=== PATIENT | female | born 1950 | race Caucasian/White ===

== ENCOUNTER → 2018-01-16 07:23 | Outpatient (CLI) | payer MEDICARE, OTHER, SELFPAY ==
[2018-01-16 08:44] LABS: ALB/GLOB Ratio 0.9 RATIO (0.9-2.4); AST(SGOT) 10 U/L (15-37); Alanine Aminotransfer ALT/SGPT 20 U/L (13-56); Albumin, Serum 3.3 g/dL (3.2-5.0); Alkaline Phosphatase 90 U/L (45-117); Anion Gap 5 (5-15); BUN 14 mg/dL (7-18); BUN/Creat Ratio 20.6 RATIO (10-20); Calcium,Total 8.2 mg/dL (8.5-10.1); Chloride 110 mmol/L (98-107); Creatinine, Serum 0.68 mg/dL (0.55-1.02); EST Glomerular Filtration Rate 91 mL/min (>60); Est Glom Filt Rate - Afr Amer 111 mL/min (>60); Globulin 3.5 g/dL (2.2-4.2); Glucose 94 mg/dL (74-106); Potassium 3.7 mmol/L (3.5-5.1); Protein, Total 6.8 g/dL (6.4-8.2); Sodium Level 142 mmol/L (136-145); Thyroid Stim Hormone (TSH) 1.72 uIU/mL (0.358-3.74)
[2018-01-16 09:50] LABS: Vitamin D,25 Hydroxy 55.2 ng/mL (29.95-100.01)
== END ==
PROVIDERS: Family Provider Family Medicine; PCP Family Medicine; Visit Provider Internal Medicine Endocrinology, Diabetes & Metabolism
DX: E03.8 Other specified hypothyroidism (principal); E55.9 Vitamin D deficiency, unspecified
CPT/HCPCS: 36415; 80053; 82306; 84443

== ENCOUNTER → 2018-06-10 15:50 | Outpatient (CLI) | payer MEDICARE, OTHER, SELFPAY | PROVIDERS: Family Provider Family Medicine; PCP Family Medicine; Visit Provider Otolaryngology Otolaryngology/Facial Plastic Surgery | DX: J34.89 Other specified disorders of nose and nasal sinuses (principal) | CPT/HCPCS: 87070; 87077; 87186; 87205 ==

== ENCOUNTER → 2018-09-11 07:54 | Outpatient (CLI) | payer MEDICARE, OTHER, SELFPAY ==
[2018-09-11 09:28] LABS: ALB/GLOB Ratio 0.9 RATIO (0.9-2.4); AST(SGOT) 13 U/L (15-37); Alanine Aminotransfer ALT/SGPT 26 U/L (13-56); Albumin, Serum 3.4 g/dL (3.2-5.0); Alkaline Phosphatase 86 U/L (45-117); Anion Gap 8 (5-15); BUN 11 mg/dL (7-18); BUN/Creat Ratio 15.2 RATIO (10-20); Calcium,Total 8.7 mg/dL (8.5-10.1); Chloride 108 mmol/L (98-107); Cholesterol 177 mg/dL (200); Creatinine, Serum 0.72 mg/dL (0.55-1.02); EST Glomerular Filtration Rate 85 mL/min (>60); Est Glom Filt Rate - Afr Amer 103 mL/min (>60); Globulin 3.7 g/dL (2.2-4.2); Glucose 98 mg/dL (74-106); High Density Lipoprotein 45 mg/dL; Protein, Total 7.1 g/dL (6.4-8.2); Sodium Level 142 mmol/L (136-145); Triglycerides 153 mg/dL; Very Low Density Lipoprotein 31 mg/dL (5-40)
[2018-09-11 09:31] LABS: Vitamin D,25 Hydroxy 43.7 ng/mL (29.95-100.01)
== END ==
PROVIDERS: Family Provider Family Medicine; PCP Family Medicine; Referring Provider Internal Medicine Endocrinology, Diabetes & Metabolism; Visit Provider Internal Medicine Endocrinology, Diabetes & Metabolism
DX: E03.8 Other specified hypothyroidism (principal); E78.2 Mixed hyperlipidemia; E55.9 Vitamin D deficiency, unspecified
CPT/HCPCS: 36415; 80053; 80061; 82306

== ENCOUNTER → 2018-11-19 08:37 | Outpatient (CLI) | payer MEDICARE, OTHER, SELFPAY ==
[2018-10-30 08:20] VITALS: BMI 31.4
--- NOTE | 2018-11-19 08:39 | ECHOCS_ITS ---
Reason For Study: HTN Procedure This was a 2D Doppler, Color Flow transthoracic echocardiogram. Contrast injection was performed. Exam performed in department. Left Ventricle Normal LV size. Left ventricular systolic function is normal. The estimated ejection fraction is 65 %. No regional wall motion abnormalities noted. Right Ventricle Normal RV size. Normal systolic function. Atria Normal left atrium. Normal right atrium. Mitral Valve Normal mitral valve. Tricuspid Valve Normal tricuspid valve. Aortic Valve Normal aortic valve. Trisinus/trileaflet aortic valve. Pulmonic Valve Normal pulmonic valve. Great Vessels Normal aortic root. The pulmonary artery is normal size. Normal inferior vena cava. Pericardium/Pleural No pericardial effusion. Medication 22 gauge I.V. with prn adaptor inserted into left arm. Diluted definity 4ml given slow IV push to enhance endocardial definition. MMode/2D Measurements & Calculations LVIDd: 4.6 cm IVSd: 0.71 cm Ao root diam: 3.3 cm LVIDs: 3.5 cm LVPWd: 1.0 cm RVDd: 3.1 cm FS: 24.3 % LAV(MOD-bp): 39.3 ml LVAd ap4: 32.7 cm2 EDV(MOD-sp2): 80.7 ml LAV(MOD-bp) Indexed: 20.1 ml/m2 EDV(MOD-sp4): 110.8 ml EF(MOD-sp2): 63.2 % LAV(MOD-sp2): 37.4 ml EDV(sp4-el): 109.1 ml LAV(MOD-sp4): 42.2 ml LVAs ap4: 18.5 cm2 ESV(MOD-sp4): 52.5 ml ESV(sp4-el): 48.7 ml EF(MOD-sp4): 52.6 % EF(sp4-el): 55.4 % SV(MOD-sp4): 58.3 ml SV(MOD-sp2): 51.0 ml SV(sp4-el): 60.4 ml LA A4 area: 16.0 cm2 LA dimension(2D): 4.0 cm RA A4 area: 11.7 cm2 Time Measurements MV dec time: 0.11 sec Doppler Measurements & Calculations MV E max ricardo: 70.7 cm/sec Lat Peak E' Ricardo: 3.5 cm/sec Med Peak E' Ricardo: 4.3 cm/sec MV A max ricardo: 110.1 cm/sec E/E' lat: 19.9 E/E' med: 16.4 MV E/A: 0.64 Ao V2 max: 121.9 cm/sec LV V1 max: 90.9 cm/sec PA V2 max: 86.5 cm/sec Ao max P.9 mmHg LV V1 max P.3 mmHg TR max ricardo: 234.9 cm/sec TR max P.1 mmHg Interpretation Summary Normal LV size. Left ventricular systolic function is normal. The estimated ejection fraction is 65 %. Contrast injection was performed. Structurally normal valves. Ordering Physician: Da Solorio Referring Physician: JANET REYES Performed By: Liv Abel, SANGEETA, RVT
== END ==
PROVIDERS: Family Provider Family Medicine; PCP Family Medicine; Referring Provider Internal Medicine Cardiovascular Disease; Visit Provider Internal Medicine Cardiovascular Disease
DX: I10 Essential (primary) hypertension (principal)
CPT/HCPCS: 93306; Q9957; A4216; C8929

== ENCOUNTER → 2019-03-09 08:18 | Outpatient (CLI) | payer MEDICARE, OTHER, SELFPAY ==
[2018-10-30 08:20] VITALS: BMI 31.4
[2019-03-09 11:41] LABS: T4 Free Direct 1.16 ng/dL (0.76-1.46); Thyroid Stim Hormone (TSH) 0.96 uIU/mL (0.358-3.74)
== END ==
PROVIDERS: Family Provider Family Medicine; PCP Family Medicine; Referring Provider Family Medicine; Visit Provider Family Medicine
DX: E03.9 Hypothyroidism, unspecified (principal)
CPT/HCPCS: 36415; 84439; 84443

== ENCOUNTER → 2019-05-18 07:32 | Outpatient (CLI) | payer MEDICARE, OTHER, SELFPAY ==
[2018-10-30 08:20] VITALS: BMI 31.4
[2019-05-18 09:41] LABS: Vitamin D,25 Hydroxy 30.1 ng/mL (29.95-100.01)
[2019-05-18 09:44] LABS: AST(SGOT) 18 U/L (15-37); Alanine Aminotransfer ALT/SGPT 31 U/L (13-56); Albumin, Serum 3.5 g/dL (3.2-5.0); Alkaline Phosphatase 93 U/L (45-117); Anion Gap 7 (5-15); BUN 16 mg/dL (7-18); BUN/Creat Ratio 23.3 RATIO (10-20); Calcium,Total 8.9 mg/dL (8.5-10.1); Chloride 107 mmol/L (98-107); Cholesterol 177 mg/dL (200); Creatinine, Serum 0.69 mg/dL (0.55-1.02); EST Glomerular Filtration Rate 90 mL/min (>60); Est Glom Filt Rate - Afr Amer 109 mL/min (>60); Globulin 3.5 g/dL (2.2-4.2); Glucose 101 mg/dL (74-106); High Density Lipoprotein 49 mg/dL; Potassium 3.9 mmol/L (3.5-5.1); Sodium Level 141 mmol/L (136-145); Thyroid Stim Hormone (TSH) 1.02 uIU/mL (0.358-3.74); Triglycerides 121 mg/dL; Very Low Density Lipoprotein 24 mg/dL (5-40)
== END ==
PROVIDERS: Family Provider Family Medicine; PCP Family Medicine; Referring Provider Internal Medicine Endocrinology, Diabetes & Metabolism; Visit Provider Internal Medicine Endocrinology, Diabetes & Metabolism
DX: E03.8 Other specified hypothyroidism (principal); E78.2 Mixed hyperlipidemia; E55.9 Vitamin D deficiency, unspecified
CPT/HCPCS: 36415; 80053; 80061; 82306; 84443

== ENCOUNTER → 2020-01-14 09:37 | Outpatient (CLI) | payer MEDICARE, OTHER, SELFPAY ==
[2019-10-26 11:07] VITALS: BMI 31.4
[2020-01-14 12:28] LABS: AST(SGOT) 21 U/L (15-37); Alanine Aminotransfer ALT/SGPT 28 U/L (13-56); Albumin, Serum 3.6 g/dL (3.2-5.0); Alkaline Phosphatase 93 U/L (45-117); Anion Gap 5 (5-15); BUN 17 mg/dL (7-18); BUN/Creat Ratio 22.4 RATIO (10-20); Chloride 109 mmol/L (98-107); Creatinine, Serum 0.76 mg/dL (0.55-1.02); EST Glomerular Filtration Rate 80 mL/min (>60); Est Glom Filt Rate - Afr Amer 96 mL/min (>60); Globulin 3.6 g/dL (2.2-4.2); Glucose 106 mg/dL (74-106); Potassium 4.1 mmol/L (3.5-5.1); Protein, Total 7.2 g/dL (6.4-8.2); Sodium Level 141 mmol/L (136-145)
[2020-01-14 12:39] LABS: Absolute Lymphocyte Count 1.22 X10^3/uL (0.83-4.51); Absolute Neutrophil Count 4.6 X10^3/uL (2.0-7.7); Basophil# 0.02 X10^3/uL; Basophil% 0.3 % (0-1); Eosinophil# 0.05 X10^3/uL; Eosinophils% 0.8 % (0-5); Hematocrit 46.8 % (37-47); Lymphocyte # 1.22 X10^3/ul (4.0); Lymphocyte % 19.1 % (19-41); Mean Corp Hgb Conc 32.1 g/dL (32-36); Mean Corpuscular Hgb 29.9 pg (27.0-32.0); Mean Corpuscular Volume 93.4 fL (81-99); Mean Platelet Vol. 12.2 fl (6.2-12.0); Monocyte# 0.46 X10^3/uL; Monocyte% 7.2 % (0-10); NRBC Flagged by Analyzer 0 % (0-5); Neutrophil # 4.61 X10^3/uL (2.7-7.7); Neutrophil % 72.1 % (47-70); Platelet Count 138 K/mm3 (150-450); RBC Distribution Width CV 13.1 % (11.6-14.6); RBC Distribution Width SD 44.9 fl (35.1-43.9); Red Blood Count 5.01 M/mm3 (4.2-5.4); White Blood Count 6.4 K/mm3 (4.4-11.0)
== END ==
PROVIDERS: PCP Family Medicine; Visit Provider Family Medicine
DX: E03.9 Hypothyroidism, unspecified (principal); I10 Essential (primary) hypertension; R73.01 Impaired fasting glucose
CPT/HCPCS: 36415; 80053; 85025

== ENCOUNTER → 2020-03-17 11:24 | Outpatient (CLI) | payer MEDICARE, OTHER, SELFPAY ==
[2019-10-26 11:07] VITALS: BMI 31.4
[2020-03-17 12:07] LABS: Vitamin D,25 Hydroxy 76.7 ng/mL
[2020-03-17 12:15] LABS: ALB/GLOB Ratio 1.1 RATIO (0.9-2.4); AST(SGOT) 19 U/L (15-37); Alanine Aminotransfer ALT/SGPT 30 U/L (13-56); Albumin, Serum 3.6 g/dL (3.2-5.0); Alkaline Phosphatase 96 U/L (45-117); Anion Gap 5 (5-15); BUN 16 mg/dL (7-18); BUN/Creat Ratio 21.6 RATIO (10-20); Calcium,Total 9.2 mg/dL (8.5-10.1); Chloride 108 mmol/L (98-107); Creatinine, Serum 0.74 mg/dL (0.55-1.02); EST Glomerular Filtration Rate 82 mL/min (>60); Est Glom Filt Rate - Afr Amer 99 mL/min (>60); Globulin 3.4 g/dL (2.2-4.2); Glucose 102 mg/dL (74-106); Potassium 4.1 mmol/L (3.5-5.1); Sodium Level 142 mmol/L (136-145); Thyroid Stim Hormone (TSH) 1.04 uIU/mL (0.358-3.74)
== END ==
PROVIDERS: PCP Family Medicine; Referring Provider Internal Medicine Endocrinology, Diabetes & Metabolism; Visit Provider Internal Medicine Endocrinology, Diabetes & Metabolism
DX: E03.8 Other specified hypothyroidism (principal); E55.9 Vitamin D deficiency, unspecified
CPT/HCPCS: 36415; 80053; 82306; 84443

== ENCOUNTER → 2020-12-18 07:42 | Outpatient (CLI) | payer MEDICARE, OTHER, SELFPAY ==
[2020-10-26 11:22] VITALS: BMI 31.6
[2020-12-18 08:54] LABS: Vitamin D,25 Hydroxy 79.4 ng/mL
[2020-12-18 08:55] LABS: ALB/GLOB Ratio 0.9 RATIO (0.9-2.4); AST(SGOT) 20 U/L (15-37); Alanine Aminotransfer ALT/SGPT 24 U/L (13-56); Albumin, Serum 3.6 g/dL (3.2-5.0); Alkaline Phosphatase 108 U/L (45-117); Anion Gap 4 (5-15); BUN 18 mg/dL (7-18); BUN/Creat Ratio 21.8 RATIO (10-20); Calcium,Total 9.1 mg/dL (8.5-10.1); Chloride 108 mmol/L (98-107); Cholesterol 168 mg/dL (200); Creatinine, Serum 0.83 mg/dL (0.55-1.02); EST Glomerular Filtration Rate 72 mL/min (>60); Est Glom Filt Rate - Afr Amer 87 mL/min (>60); Globulin 3.9 g/dL (2.2-4.2); Glucose 107 mg/dL (74-106); High Density Lipoprotein 55 mg/dL; Potassium 3.9 mmol/L (3.5-5.1); Protein, Total 7.5 g/dL (6.4-8.2); Sodium Level 139 mmol/L (136-145); Thyroid Stim Hormone (TSH) 1.45 uIU/mL (0.358-3.74); Triglycerides 112 mg/dL; Very Low Density Lipoprotein 22 mg/dL (5-40)
== END ==
PROVIDERS: PCP Family Medicine; Referring Provider Internal Medicine Endocrinology, Diabetes & Metabolism; Visit Provider Internal Medicine Endocrinology, Diabetes & Metabolism
DX: E03.8 Other specified hypothyroidism (principal); E78.2 Mixed hyperlipidemia; E55.9 Vitamin D deficiency, unspecified
CPT/HCPCS: 36415; 80053; 80061; 82306; 84443

== ENCOUNTER → 2021-03-07 08:44 | Outpatient (CLI) | payer MEDICARE, OTHER, SELFPAY ==
[2020-10-26 11:22] VITALS: BMI 31.6
[2021-03-05 12:59] VITALS: BMI 29.9
--- NOTE | 2021-03-07 08:51 | ECHODONC_ITS ---
Reason For Study: Metastatic cancer with radiation Procedure This was a 2D Doppler, Color Flow transthoracic echocardiogram. Myocardial strain analysis was performed in this exam to aid in the assessment of cardiac function. The study was technically difficult. Exam performed in department. Left Ventricle Normal LV size. Sigmoid septum. Left ventricular systolic function is normal. The estimated ejection fraction is 65 %. The global longitudinal strain = -20 % (normal). Diastolic function is indeterminate. No regional wall motion abnormalities noted. Right Ventricle Normal RV size. Normal systolic function. Atria Normal left atrium. Normal right atrium. No doppler evidence for ASD. Mitral Valve There is no mitral annular calcification. The mitral valve chordae are thickened and/or calcified. Trivial mitral valve insufficiency. Tricuspid Valve Normal tricuspid valve. Trivial tricuspid valve insufficiency. Unable to estimate RV systolic pressure/pulmonary artery pressure due to technically difficult study. Aortic Valve Trisinus/trileaflet aortic valve. Normal aortic valve. Pulmonic Valve The pulmonic valve is not well visualized. Great Vessels Normal sized aortic root. Pericardium/Pleural No pericardial effusion. MMode/2D Measurements & Calculations LVIDd: 3.4 cm IVSd: 1.1 cm Ao root diam: 3.4 cm LVIDs: 1.9 cm LVPWd: 1.2 cm LA dimension: 3.1 cm FS: 44.5 % LAV(MOD-bp): 39.1 ml LVAd ap4: 26.2 cm2 SV(MOD-sp4): 42.4 ml LAV(MOD-bp) Indexed: 20.5 ml/m2 LVLd ap4: 7.3 cm LAV(MOD-sp2): 30.6 ml EDV(MOD-sp4): 77.0 ml LAV(MOD-sp4): 36.6 ml EDV(sp4-el): 80.3 ml LVAs ap4: 16.5 cm2 LVLs ap4: 6.6 cm ESV(MOD-sp4): 34.6 ml ESV(sp4-el): 35.2 ml EF(MOD-sp4): 55.1 % EF(sp4-el): 56.1 % SV(sp4-el): 45.0 ml LA A4 area: 15.0 cm2 RA A4 area: 10.2 cm2 Time Measurements MV dec time: 0.24 sec Doppler Measurements & Calculations MV E max ricardo: 89.5 cm/sec Lat Peak E' Ricardo: 3.5 cm/sec Med Peak E' Ricardo: 5.7 cm/sec MV A max ricardo: 127.8 cm/sec E/E' lat: 25.2 E/E' med: 15.8 MV E/A: 0.70 MV V2 max: 128.8 cm/sec MV P1/2t max ricardo: 79.6 cm/sec Ao V2 max: 124.6 cm/sec MV max P.6 mmHg MV P1/2t: 89.5 msec Ao max P.2 mmHg MV V2 mean: 72.2 cm/sec MV mean P.5 mmHg MV dec slope: 260.3 cm/sec2 MV V2 VTI: 23.1 cm MVA(P1/2t): 2.5 cm2 LV V1 max: 94.6 cm/sec PA V2 max: 82.8 cm/sec LV V1 max P.6 mmHg ECHO/ONC Echo Complete Interpretation Summary The study was technically difficult. Left ventricular systolic function is normal. The estimated ejection fraction is 65 %. The global longitudinal strain = -20 % (normal). Sigmoid septum. The mitral valve chordae are thickened and/or calcified. Trivial mitral valve insufficiency. Trivial tricuspid valve insufficiency. Unable to estimate RV systolic pressure/pulmonary artery pressure due to techni tha difficult study. Diastolic function is indeterminate. Ordering Physician: Alex Moody Referring Physician: Alex Moody Performed By: Clifton Ochoa RCS
--- NOTE | 2021-03-07 09:39 | EKG12_ITS ---
Test Reason : RADIATION TX Blood Pressure : / mmHG Vent. Rate : 086 BPM Atrial Rate : 086 BPM P-R Int : 176 ms QRS Dur : 084 ms QT Int : 348 ms P-R-T Axes : 040 039 036 degrees QTc Int : 416 ms Normal sinus rhythm Normal ECG Confirmed by SUZANNE FERGUSON, ALEX ([id number]), desk editor LOUANN ARIAS ([id number]) on 03/08/2021 9:18:04 AM Referred By: Alex Moody Confirmed By:ALEX PALACIOS MD
== END ==
PROVIDERS: PCP Family Medicine; Referring Provider Internal Medicine Hematology & Oncology; Visit Provider Internal Medicine Hematology & Oncology
DX: C50.011 Malignant neoplasm of nipple and areola, right female breast (principal); Z17.0 Estrogen receptor positive status [ER+]; C79.51 Secondary malignant neoplasm of bone; C78.00 Secondary malignant neoplasm of unspecified lung; Z51.81 Encounter for therapeutic drug level monitoring; Z79.899 Other long term (current) drug therapy
CPT/HCPCS: 93005; 93306; 93356

== ENCOUNTER 2021-03-20 13:07 | Day surgery (SDC) | payer MEDICARE, OTHER, SELFPAY ==
[2021-03-05 12:59] VITALS: BMI 29.9
[2021-03-19 09:47] LABS: Hematocrit 45.6 % (37-47); Hemoglobin 14.4 g/dL (12.0-15.0); Mean Corp Hgb Conc 31.6 g/dL (32-36); Mean Corpuscular Hgb 28.6 pg (27.0-32.0); Mean Corpuscular Volume 90.5 fL (81-99); Mean Platelet Vol. 10.1 fl (6.2-12.0); Platelet Count 215 K/mm3 (150-450); RBC Distribution Width CV 13.7 % (11.6-14.6); RBC Distribution Width SD 45.3 fl (35.1-43.9); Red Blood Count 5.04 M/mm3 (4.2-5.4); White Blood Count 7.9 K/mm3 (4.4-11.0)
[2021-03-19 11:17] LABS: Anion Gap 5 (5-15); BUN 14 mg/dL (7-18); BUN/Creat Ratio 23.3 RATIO (10-20); Calcium,Total 9.5 mg/dL (8.5-10.1); Chloride 108 mmol/L (98-107); EST Glomerular Filtration Rate 104 mL/min (>60); Est Glom Filt Rate - Afr Amer 126 mL/min (>60); Glucose 100 mg/dL (74-106); Potassium 3.7 mmol/L (3.5-5.1); Sodium Level 139 mmol/L (136-145)
[2021-03-20 13:34] VITALS: BP 144/81; PULSE 101; RESP 16; TEMP 36.3; O2SAT 95; BMI 34.9
[2021-03-20] MEDS: Lactated Ringers 1,000 ML 100 ML IV (14:10)
--- NOTE | 2021-03-20 14:15 | PCM.HP.BLA ---
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 Required: No Is patient in pain?: No Allergies lisinopril Allergy (Intermediate, Verified 03/05/21 13:00) Itching ciprofloxacin [From Cipro] Allergy (Unknown, Verified 03/05/21 13:00) Hives sulfamethoxazole [From Bactrim] Allergy (Verified 03/05/21 13:00) Unknown trimethoprim [From Bactrim] Allergy (Verified 03/05/21 13:00) Unknown erythromycin base Adverse Reaction (Unknown, Verified 03/05/21 13:00) Jittery and itching Sulfa (Sulfonamide Antibiotics) Adverse Reaction (Unknown, Verified 03/05/21 13:00) Jittery and itching Tetracyclines Adverse Reaction (Unknown, Verified 03/05/21 13:00) Jittery and itching Medications ergocalciferol (vitamin D2) 1,250 mcg (50,000 unit) capsule 50,000 unit PO QWEEK 30 Days #4.285 cap 11/06/17 [History Confirmed 03/05/21] levothyroxine 75 mcg tablet PO 90 Days 11/06/17 [History Confirmed 03/05/21] multivitamin,ux-ambz-[id number] 1 tab PO QDAY 11/06/17 [History Confirmed 03/05/21] calcium citrate 200 mg (950 mg) tablet 500 mg PO BID tab 04/05/18 [History Confirmed 03/05/21] flaxseed oil 1,000 mg capsule 1,000 mg PO DAILY 03/05/21 [History Confirmed 03/05/21] magnesium 250 mg tablet 250 mg PO DAILY 03/05/21 [History Confirmed 03/05/21] zinc 50 mg tablet 50 mg PO DAILY 03/05/21 [History Confirmed 03/05/21] [facility] Medical History Essential (primary) hypertension (Chronic) Hyperlipemia, mixed (Chronic) Breast cancer (Chronic) Diverticulosis (Chronic) Essential (primary) hypertension (Chronic) History of radiation therapy (Chronic) Hyperlipemia, mixed (Chronic) Hypothyroidism (Chronic) IBS (irritable bowel syndrome) (Chronic) Osteoporosis (Chronic) TMJ (temporomandibular joint syndrome) (Chronic) Thyroid disease (Chronic) Surgical History H/O section (Resolved) History of cholecystectomy (Resolved) History of lumpectomy of right breast (Resolved 06/19/18) Family History Father CAD (coronary artery disease) Mother Breast cancer Sister Colon cancer Other Heart disease Liver cancer Social History (Updated 03/05/21 @ 13:[address] Carlos Baer MD) Smoking Status: Never smoker alcohol intake: current alcohol intake frequency: holidays/special occasions only Alcohol type: wine substance use type: does not use caffeine: No what type of physical activity do you participate in: aerobics frequency: 1-2 times per week duration: 45-60 minutes/day seatbelt use: always do you feel safe at home: Yes HPI HPI HPI: MO GONZALEZ, is a 70 F who presents to the office today for surgical consultation regarding placement of a vascular port to assist with chemotherapy. The patient is referred by Dr. Alex Moody and a written copy of my surgical consult and recommendations will return to him. April 2018 she had breast conservation surgery right breast for invasive ductal carcinoma. 4 sentinel lymph nodes were negative. She declined chemotherapy. She declined Oncotype DX test. In the interim she has developed a multiple pulmonary nodules. She now is in need of chemotherapy and venous access is being requested. She also has evidence of metastatic disease to her right acetabulum. She is in a wheelchair. Apparently her right acetabulum is very fragile. She is at risk for pathologic fracture. Exam Const General: cooperative, comfortable, no acute distress Nutritional Appearance: overweight Orientation: alert, awake [facility] Head: normal to inspection Chest Other: Kyphosis Resp Effort & Inspection: normal respiratory effort Auscultation: clear to auscultation bilaterally Cardio Rate: tachycardic Rhythm: regular rhythm GI Palpation: soft, no hepatosplenomegaly Neuro Cognition: normal cognition Extrem Other: Bilateral extremity dependent edema Psych Affect: normal affect Assessment & Plan Problems 1. Metastatic breast cancer C50.919 Plan 70-year-old female with pulmonary and bone metastatic disease from right breast cancer. She would prefer that we attempt a left internal jugular approach for a port placement to facilitate chemotherapy. I have discussed with her the technique, benefit, risk of alternatives. No guarantees of success have been offered. She is aware that I from absolutely unable to get a left-sided approach that I will then attempt a right internal jugular approach. She has had an opportunity to ask and have questions answered. I very much appreciate the kind opportunity of assisting with her surgical care. Copy: Dr. Stevenson Miranda and Dr. Alex Baer M.D., F.A.C.S I have re-examined the patient. There are no clinical changes since date of exam.
--- NOTE | 2021-03-20 14:19 | PCM.DC ---
Discharge Instructions Diet Discharge Diet: No restrictions (Pain medication may cause nausea. You should typically eat light foods as you take your pain medication.) Activity Discharge Activity: Return to Normal Activity and May Shower (Leave the bandage on for 2-3 days. When you remove the bandage, leave the steri-strips intact until they fall off.) Additional Activity Instructions:: May not drive, work with heavy equipment, or sign legal documents for [address]. [address] if you are no longer taking narcotic pain medications. You may drive when you are no longer taking pain medications. Dressing / Incision Additional Dressing/Incision Instructions:: Leave the bandage on for 2-3 days. When you remove the bandage, leave steri strips for one week Please notify the office if you are having any difficulties. [phone] Follow Up Care Test Results: Test results from this visit will be discussed in further detail at your follow-up appointment, if applicable. Discharge Plan Admission Attending Provider: Carlos Baer Primary Care Provider: Stevenson Miranda Discharge Orders/Prescriptions Prescriptions: No Action levothyroxine 75 mcg tablet 75 mcg PO DAILY 90 Days RF: 0 ergocalciferol (vitamin D2) 50,000 unit capsule 50,000 unit PO FERRER 30 Days Qty: 4.285 RF: 0 multivitamin,ur-nngx-hqsagfno tablet tablet 1 tab PO QDAY RF: 0 calcium citrate 200 mg (950 mg) tablet 500 mg PO BID RF: 0 magnesium 250 mg tablet 250 mg PO DAILY RF: 0 zinc 50 mg tablet 50 mg PO DAILY RF: 0 flaxseed oil 1,000 mg capsule 1,000 mg PO DAILY RF: 0 cholecalciferol (vitamin D3) [Vitamin D3] 50 mcg (2,000 unit) Capsule 50 mcg PO DAILY RF: 0 Probiotic Acidophilus 1.5 mg (250 million cell) Capsule 500 mmu cells PO DAILY RF: 0
[2021-03-20] MEDS: Cefazolin 2 GM in 0.9% Normal Saline 100 ML IV (14:55)
[2021-03-20] MEDS: Lidocaine 1% (30 ml sdv) 30 ML Vial (15:30)
[2021-03-20] MEDS: Bupivacaine Mpf 0.5% 30 ML VIAL (15:30)
--- NOTE | 2021-03-20 15:45 | OP.PCM_ITS ---
Problems Associated Problem List Diagnoses (1) Metastatic breast cancer: Report of Operation Date of Procedure: 03/20/21 Pre-Operative Diagnosis: Metastatic breast cancer Post-Operative Diagnosis: Same Surgery/Procedure Performed:: Left internal jugular 6 [place] PowerPort placement: Reference [id number], Lot [id number], expiry date 03/09/2022 Description of Surgical Findings:: Timeout and informed consent was obtained. 70-year-old female taken to the operating placed upon the table underwent monitored anesthesia care. Ancef 2 g were given intravenously. The neck and chest were sterilely prepped and draped. Ultrasound was used to find the course of the left internal jugular vein. It was somewhat small in diameter. Under ultrasound guidance 1% lidocaine mixed 50-50 with 0.5% Marcaine was instilled as a local anesthetic. A total 28 cc was used throughout the procedure. Under ultrasound guidance a micropuncture needle was inserted into the left internal jugular vein and then Seldinger wire technique was utilized. Local was instilled overlying the anterior chest wall. Midclavicular line second intercostal space. Transverse incision was created and a pocket was created using electrocautery. The tubing then was tunneled from the neck to the chest site. A micropuncture sheath was placed over the wire. 035 J-wire was inserted. It seemed like there was some hang up and so then I used an 035 angled Glidewire to assure that this sheath was down in correct position. I then advanced the tubing through the sheath split the sheath and positioned the tubing to be close to the SVC atrial junction. It aspirated easily. I amputated it to length and connected it to the port. It was secured to the port attachment device. The port was placed in the pocket and secured there with 2-0 silk. Skin edges approximated up to 3-0 Vicryl. The neck site was closing up with 5-0 Vicryl subdermal stitch. Steri-Strips applied. The port was accessed and aspirated easily it was flushed with saline and then 2 cc of heparinized saline. Telfa OpSite dressings applied. Sponge and instrument and needle counts were reported to certainly be correct. Blood loss was minimal. She tolerated the procedure well was taken to the recovery area in satisfactory condition without apparent complication. Portable chest x-ray is pending. Specimens none. Drains none. Blood loss minimal. Carlos Baer M.D., F.A.C.S. Type of Anesthesia: Local and MAC Anesthesiologist: Lionel Hoang
[2021-03-20 15:50] VITALS: BP 131/83; BP 144/81; PULSE 90; RESP 18; TEMP 36.2; O2SAT 95
[2021-03-20 15:55] VITALS: BP 138/89; BP 144/81; PULSE 88; RESP 18; O2SAT 95
--- NOTE | 2021-03-20 15:58 | RAD_ITS ---
STUDY: X-RAY CHEST REASON FOR EXAM: Female, 70 years old. Line TECHNIQUE: Frontal view COMPARISON: None. FINDINGS: There is a left-sided venous port with tip at the mid SVC. Mild right basilar infiltrate/atelectasis. There is no demonstrated pleural abnormality. Normal size heart. Normal mediastinum and alysa. Normal visualized pulmonary arteries. Normal visualized aortic arch and descending thoracic aorta. Normal visualized thoracic spine. Normal visualized ribs, clavicles, and shoulders. Surgical clips are noted over the right axilla. There is no demonstrated abnormality of the visualized soft tissue structures of the upper abdomen. RAD/CXR for Line Placement IMPRESSION: Right basilar infiltrate/atelectasis. Electronically Signed: Errol Pedraza DO at 16:45 EDT Tel [phone], Service support ,
[2021-03-20 16:00] VITALS: BP 144/81; BP 163/97; PULSE 94; RESP 18; O2SAT 94
[2021-03-20 16:05] VITALS: BP 144/81; BP 147/93; PULSE 92; RESP 18; TEMP 36.3; O2SAT 97
[2021-03-20 17:00] VITALS: BP 144/81; BP 166/80; PULSE 85; RESP 16; TEMP 36.1; O2SAT 97
== END 2021-03-20 17:07 | disposition home or self-care (01) ==
LOC: SDC 13:07 → AC 13:08
PROVIDERS: PCP Family Medicine; Referring Provider Surgery; Visit Provider Surgery
PROC: (CPT 36561; principal; 2021-03-20 14:55)
DX: Z45.2 Encounter for adjustment and management of vascular access device (principal); C50.911 Malignant neoplasm of unspecified site of right female breast; C78.00 Secondary malignant neoplasm of unspecified lung; C79.51 Secondary malignant neoplasm of bone; I10 Essential (primary) hypertension; E78.2 Mixed hyperlipidemia; E03.9 Hypothyroidism, unspecified; M81.0 Age-related osteoporosis without current pathological fracture; Z99.3 Dependence on wheelchair; Z79.899 Other long term (current) drug therapy; Z20.822 Contact with and (suspected) exposure to COVID-19; Z92.3 Personal history of irradiation; Z80.3 Family history of malignant neoplasm of breast
CPT/HCPCS: 00532; 36561; 36415; 71045; 77001; 80048; 85027; 87426; C9803; J7120; C1769

== ENCOUNTER 2021-04-22 03:42 | Observation (INO) | payer MEDICARE, OTHER, SELFPAY ==
[2021-04-22] VITALS (14 sets, daily range): BP systolic 130–155; BP diastolic 68–92; PULSE 88–108; RESP 16–21; TEMP 35.9–36.7; O2SAT 93–96; BMI 29.6; BMI 29.7
--- NOTE | 2021-04-22 03:55 | CT_ITS ---
HISTORY: r/o pe TECHNIQUE: Helically acquired images were obtained of the chest following the intravenous administration of 100 ML of Isovue-370 Iodinated contrast. as per pulmonary angiogram protocol with 2D , without 3-D MIP reconstructions. A radiation dose optimization technique was used for this scan. COMPARISON: Most recent comparison chest x-ray is from March 20, 2021 FINDINGS: # of images incl. paperwork: [id number] Pulmonary hyperexpansion. Chronic bronchitis. Lung scarring. Within the right lower lobe, in the right costophrenic sulcus there is a 7 x 8 mm pulmonary nodule. Some additional right lower lobe pulmonary nodules are present but smaller. Right upper lobe pulmonary nodule is present adjacent to the major minor fissure, series 2 image 101. It measures 4 x 3 mm. Some additional nodules are present along the minor fissure. Pleural parenchymal nodule with some scarring to the surrounding lung parenchyma is present posteriorly and medially within the right upper lobe measuring 8 x 10 mm. Within the left anterior chest wall there is a left IJ single lumen port. The catheter tip terminates in the SVC. . No effusions. Within the thoracic spinethere is a kyphosis. Multilevel degenerative disc disease. Erosions from metastatic disease are present within the C7-T1 T2 T5 and T10 vertebral bodies. T10 it extends into the posterior elements. At T7 there are some left-sided pars interarticularis and posterior element extension of tumor. At the T1-T2 levels bone has been eroded with tumor extending into the surrounding soft tissues Vertebral body height narrowed at the T1 and T2 levels due to loss of height from the tumor and likely pathological fractures Facets are well aligned. No rib lesions are perceived. Heart is borderline enlarged. Thoracic aorta elongated. No aneurysms, stenoses, dissections, nor occlusions. Mediastinal and hilar adenopathy is greater on the right Some surgical clips are present within the right breast. The right breast adenopathy, however, right axillary clips are present likely from resection of lymph nodes. No pulmonary emboli. Visualized portions of the upper abdomen are without identified acute pathology. CT/CTA Chest W/WO Contrast IMPRESSION: No pulmonary embolism, aortic aneurysm, or aortic dissection. Multiple pulmonary nodules. One of the largest, within the right lower lobe measures 7 x 8 mm and is suggestive of metastasis. There is a moderate right upper lobe pulmonary nodule that may represent an additional metastasis. There is hilar and mediastinal metastatic adenopathy. There is also disease to the bones, perhaps most severe within the T1 and T2 C7 vertebral bodies around the outside of the bone and affecting the paraspinal canal and tissues. Additionally some more inferior thoracic spine levels at T7 and T10. At these levels the metastatic disease a Pichardo bone and the posterior elements and likely contributes to spinal canal stenosis.. Individualized dose optimization techniques were used for this CT. at 0550 Reported and signed by: Taurus Martell MD Electronically Signed: Taurus Martell MD at 5:49 EDT Tel , Service support ,
--- NOTE | 2021-04-22 03:55 | EKG12_ITS ---
Test Reason : CP Blood Pressure : / mmHG Vent. Rate : 105 BPM Atrial Rate : 105 BPM P-R Int : 180 ms QRS Dur : 080 ms QT Int : 326 ms P-R-T Axes : 030 010 017 degrees QTc Int : 430 ms Sinus tachycardia Septal infarct , age undetermined Abnormal ECG Confirmed by ELIEZER FERGUSON, BIANCA ([id number]), primer expeditor and drier LOUANN ARIAS ([id number]) on 04/26/2021 9:30:18 AM Referred By: NAWAF Confirmed By:BIANCA MARTINS MD
--- NOTE | 2021-04-22 04:08 | EDS_ITS ---
HPI History of Present Illness Chief Complaint: Chest Pain Narrative Narrative: 70-year-old female presenting with chest pain. This woke her from sleep 45 minutes prior to arrival. She complains of left-sided chest pain. She has associated shortness of breath. She was recently diagnosed with DVT on Friday and started on Eliquis. She currently is on chemotherapy for metastatic breast cancer. She denies fever. Denies other complaints. Prior similar symptoms: No PFSH PFSH Medical History Anxiety Back pain Breast cancer Cancer Chronic pain Diverticulosis Edema Essential (primary) hypertension Essential (primary) hypertension History of multiple pulmonary nodules History of radiation therapy History of vertigo Hx of echocardiogram Hyperlipemia, mixed Hyperlipemia, mixed Hypertension Hypothyroidism IBS (irritable bowel syndrome) Metastatic breast cancer Non-smoker Osteoporosis Thyroid disease TMJ (temporomandibular joint syndrome) Home Medications ergocalciferol (vitamin D2) 1,250 mcg (50,000 unit) capsule 50,000 unit PO FERRER 30 Days #4.285 cap 11/06/17 [History Last Taken Unknown] levothyroxine 75 mcg tablet 75 mcg PO DAILY 90 Days 11/06/17 [History Last Taken 03/20/21 06:30 75 mcg] multivitamin,cs-jsmg-zlohyvvn 1 tab PO QDAY 11/06/17 [History Last Taken Unknown] calcium citrate 200 mg (950 mg) tablet 500 mg PO DAILY tab 04/05/18 [History Last Taken Unknown] flaxseed oil 1,000 mg capsule 1,000 mg PO DAILY 03/05/21 [History Last Taken Unknown] magnesium 250 mg tablet 250 mg PO DAILY 03/05/21 [History Last Taken Unknown] zinc 50 mg tablet 50 mg PO DAILY 03/05/21 [History Last Taken Unknown] Probiotic Acidophilus 500 mmu cells PO DAILY 03/12/21 [History Last Taken Unknown] cholecalciferol (vitamin D3) [Vitamin D3] 50 mcg PO DAILY 03/12/21 [History Last Taken Unknown] apixaban [Eliquis] 10 mg PO BID 04/22/21 [History Last Taken Unknown] Allergy/AdvReac Type Severity Reaction Status Date / Time lisinopril Allergy Intermediate Itching Verified 04/22/21 03:48 ciprofloxacin [From Cipro] Allergy Unknown Hives Verified 04/22/21 03:48 sulfamethoxazole Allergy Unknown Verified 04/22/21 03:48 [From Bactrim] trimethoprim [From Bactrim] Allergy Unknown Verified 04/22/21 03:48 erythromycin base AdvReac Unknown Jittery Verified 04/22/21 03:48 and itching Sulfa (Sulfonamide AdvReac Unknown Jittery Verified 04/22/21 03:48 Antibiotics) and itching Tetracyclines AdvReac Unknown Jittery Verified 04/22/21 03:48 and itching Family History Father CAD (coronary artery disease) Mother Breast cancer Sister Colon cancer Other Heart disease Liver cancer Surgical History H/O section History of cholecystectomy History of lumpectomy of right breast (06/19/18) Hx of tubal ligation Hx of umbilical hernia repair Social History Smoking Status: Never smoker alcohol intake: current alcohol intake frequency: holidays/special occasions only Alcohol type: wine substance use type: does not use caffeine: No what type of physical activity do you participate in: aerobics frequency: 1-2 times per week duration: 45-60 minutes/day seatbelt use: always do you feel safe at home: Yes ROS ROS ED Constitutional Constitutional ED: Denies fever(s) Eyes Eyes: Denies change in vision ENT ENT ED: Denies rhinorrhea or sore throat Cardiovascular Cardiovascular: Reports chest pain; Denies palpitations Respiratory/Chest Respiratory/Chest: Reports dyspnea; Denies cough Gastrointestinal Gastrointestinal: Denies abdominal pain, diarrhea, nausea or vomiting Genitourinary Genitourinary ED: Denies dysuria Musculoskeletal Musculoskeletal: Denies myalgias Integumentary Denies rash Neurologic Neurologic: Denies headache(s) Psychiatric Psychiatric: Denies suicidal thoughts EXAM Physical Exam Const Vital Signs: 04/22/21 03:43 04/22/21 04:27 04/22/21 05:21 Temperature 96.6 F L 97.5 F L Temperature Source Temporal Temporal Pulse Rate 108 H 89 Respiratory Rate 18 18 Blood Pressure 155/92 H 140/68 H Blood Pressure Mean 113 92 Pulse Ox 95 95 Oxygen Delivery Method Room Air Room Air Room Air 04/22/21 05:22 04/22/21 06:13 04/22/21 06:14 Temperature 98.1 F Temperature Source Temporal Pulse Rate 93 93 Respiratory Rate 20 H 20 H Blood Pressure 140/68 H 132/76 H 132/76 H Blood Pressure Mean 92 94 94 Pulse Ox 94 Oxygen Delivery Method Room Air 04/22/21 06:15 Temperature 98.0 F Temperature Source Temporal Pulse Rate 93 Respiratory Rate 20 H Blood Pressure 132/76 H Blood Pressure Mean 94 Pulse Ox 94 Oxygen Delivery Method Room Air Positive well nourished and well developed General Appearance ED: well developed HEENT Reports normocephalic and head/scalp atraumatic Eyes PERRL and EOMs intact bilaterally Neck supple General: Negative for tenderness Chest Wall inspection of chest normal Resp normal respiratory effort and clear to auscultation bilaterally Cardio regular rate and regular rhythm GI non-tender and non-distended Palpation: soft; Negative for guarding or rebound tenderness present no CVA tenderness Extremity normal to inspection Neuro oriented x3 Sensorium / Orientation: alert Psych mental status grossly normal MDM MDM MDM Narrative Medical decision making narrative: Patient was given aspirin, morphine, Zofran with improvement of her pain. CTA chest shows no evidence of PE. Heart score is 4, will discuss with hospitalist for observation. Lab Data Attestation: I reviewed the patient's lab results. Labs: Laboratory Results - last 24 hr 04/22/21 04/22/21 04:10 04:10 WBC 4.4 RBC 4.23 Hgb 12.6 Hct 39.0 MCV 92.2 MCH 29.8 MCHC 32.3 RDW Std Deviation 49.4 H RDW Coeff of Didi 14.8 H Plt Count 262 MPV 8.9 Immature Gran % (Auto) 0.900 Neut % (Auto) 71.5 H Lymph % (Auto) 21.9 [place] % (Auto) 4.1 Eos % (Auto) 0.7 Baso % (Auto) 0.9 Absolute Neuts (auto) 3.2 Absolute Lymphs (auto) 0.97 Nucleated RBC % 0 Sodium 140 Potassium 3.7 Chloride 107 Carbon Dioxide 25.0 Anion Gap 8 BUN 16 Creatinine 0.55 Estim Creat Clear Calc 47.60 Est GFR (MDRD) Af Amer 140 Est GFR (MDRD) Non-Af 116 BUN/Creatinine Ratio 29.1 H Glucose 112 H Calcium 8.2 L Troponin I < 0.015 Radiography Chest X-Ray - ED: 1 View, Read by ED Physician and Read by Radiologist Diagnostic Testing: Radiology Impression Chest CTA 04/22/21 03:55 IMPRESSION: No pulmonary embolism, aortic aneurysm, or aortic dissection. Multiple pulmonary nodules. One of the largest, within the right lower lobe measures 7 x 8 mm and is suggestive of metastasis. There is a moderate right upper lobe pulmonary nodule that may represent an additional metastasis. There is hilar and mediastinal metastatic adenopathy. There is also disease to the bones, perhaps most severe within the T1 and T2 C7 vertebral bodies around the outside of the bone and affecting the paraspinal canal and tissues. Additionally some more inferior thoracic spine levels at T7 and T10. At these levels the metastatic disease a Pichardo bone and the posterior elements and likely contributes to spinal canal stenosis.. Individualized dose optimization techniques were used for this CT. at 0550 Reported and signed by: Taurus Matrell MD Electronically Signed: Taurus Martell MD at 5:49 EDT Tel , Service support , EKG Initial EKG: Attestation: I personally reviewed and interpreted this EKG as follows: Interpretation: No Acute Injury Pattern and Sinus Tachycardia Discharge Plan Triage Chief Complaint: Chest Pain ED Provider: Amy Smith Dx/Rx/DC Orders Clinical Impression: Chest pain Prescriptions: No Action levothyroxine 75 mcg tablet 75 mcg PO DAILY 90 Days RF: 0 ergocalciferol (vitamin D2) 50,000 unit capsule 50,000 unit PO FERRER 30 Days Qty: 4.285 RF: 0 multivitamin,fe-uqen-lvblezgh tablet tablet 1 tab PO QDAY RF: 0 calcium citrate 200 mg (950 mg) tablet 500 mg PO DAILY RF: 0 magnesium 250 mg tablet 250 mg PO DAILY RF: 0 zinc 50 mg tablet 50 mg PO DAILY RF: 0 flaxseed oil 1,000 mg capsule 1,000 mg PO DAILY RF: 0 cholecalciferol (vitamin D3) [Vitamin D3] 50 mcg (2,000 unit) Capsule 50 mcg PO DAILY RF: 0 Probiotic Acidophilus 1.5 mg (250 million cell) Capsule 500 mmu cells PO DAILY RF: 0 Eliquis 5 mg Tablet 10 mg PO BID RF: 0 Primary Care Provider: Stevenson Miranda Referrals: Stevenson Miranda MD [Primary Care Provider] - Disposition Disposition: Acute Care Hospital [facility]
[2021-04-22 04:17] LABS: Absolute Lymphocyte Count 0.97 X10^3/uL (0.83-4.51); Absolute Neutrophil Count 3.2 X10^3/uL (2.0-7.7); Basophil# 0.04 X10^3/uL; Basophil% 0.9 % (0-1); Eosinophil# 0.03 X10^3/uL; Eosinophils% 0.7 % (0-5); Hemoglobin 12.6 g/dL (12.0-15.0); Lymphocyte # 0.97 X10^3/ul (0.83-4.51); Lymphocyte % 21.9 % (19-41); Mean Corp Hgb Conc 32.3 g/dL (32-36); Mean Corpuscular Hgb 29.8 pg (27.0-32.0); Mean Corpuscular Volume 92.2 fL (81-99); Mean Platelet Vol. 8.9 fl (6.2-12.0); Monocyte# 0.18 X10^3/uL; Monocyte% 4.1 % (0-10); NRBC Flagged by Analyzer 0 % (0-5); Neutrophil # 3.17 X10^3/uL (2.7-7.7); Neutrophil % 71.5 % (47-70); Platelet Count 262 K/mm3 (150-450); RBC Distribution Width CV 14.8 % (11.6-14.6); RBC Distribution Width SD 49.4 fl (35.1-43.9); Red Blood Count 4.23 M/mm3 (4.2-5.4); White Blood Count 4.4 K/mm3 (4.4-11.0)
[2021-04-22] MEDS: Aspirin 81 MG TAB.CHEW 324 MG PO (04:19)
[2021-04-22] MEDS: Ondansetron 4 MG/2 ML Vial IV (04:21)
[2021-04-22] MEDS: Morphine 4 MG/ML Syringe IV (04:22)
[2021-04-22 04:36] LABS: Anion Gap 8 (5-15); BUN 16 mg/dL (7-18); BUN/Creat Ratio 29.1 RATIO (10-20); Calcium,Total 8.2 mg/dL (8.5-10.1); Chloride 107 mmol/L (98-107); Creatinine, Serum 0.55 mg/dL (0.55-1.02); EST Glomerular Filtration Rate 116 mL/min (>60); Est Glom Filt Rate - Afr Amer 140 mL/min (>60); Glucose 112 mg/dL (74-106); Potassium 3.7 mmol/L (3.5-5.1); Sodium Level 140 mmol/L (136-145)
--- NOTE | 2021-04-22 09:02 | EKG12_ITS ---
Test Reason : CP ADMIT Blood Pressure : / mmHG Vent. Rate : 088 BPM Atrial Rate : 088 BPM P-R Int : 188 ms QRS Dur : 084 ms QT Int : 366 ms P-R-T Axes : 050 038 041 degrees QTc Int : 442 ms Normal sinus rhythm Normal ECG When compared with ECG of 22-APR-2021 03:47, MANUAL COMPARISON REQUIRED, DATA IS UNCONFIRMED Confirmed by ELIEZER FERGUSON, BIANCA ([id number]), medical editor LOUANN ARIAS ([id number]) on 04/24/2021 9:08:52 AM Referred By: LAYLA Confirmed By:BIANCA MARTINS MD
[2021-04-22] MEDS: Enoxaparin 100 MG/ML Syringe 90 MG SC ×2 (09:56→21:32)
[2021-04-22] MEDS: Levothyroxine 75 MCG Tablet PO (09:56)
[2021-04-22] MEDS: Ergocalciferol 1.25 MG (50, 000 UNIT) Capsule PO (09:56)
--- NOTE | 2021-04-22 10:24 | HP.PCM.HOS_ITS ---
HPI - General General Date of Admission: 04/22/21 HPI Narrative MO GONZALEZ, is a 70 F who presents to the hospital with chest pain. It woke her up about 45 minutes prior to arrival in the ER. Her troponins were unremarkable and her EKG was nonischemic. She does have a history of metastatic breast cancer as well as new onset DVT that she is being treated for with Eliquis by her oncologist. CT of the chest in the ER was negative for a PE. She does have some shortness of breath associated with the chest pain and the chest pain is left-sided radiation to her back and left arm. There is some heart disease history in the family, her father had a quadruple bypass however he was tobacco user. She currently states that her chest pain has resolved. [facility] Medical History Anxiety Back pain Breast cancer Cancer Chronic pain Diverticulosis Edema Essential (primary) hypertension Essential (primary) hypertension History of multiple pulmonary nodules History of radiation therapy History of vertigo Hx of echocardiogram Hyperlipemia, mixed Hyperlipemia, mixed Hypertension Hypothyroidism IBS (irritable bowel syndrome) Metastatic breast cancer Non-smoker Osteoporosis Thyroid disease TMJ (temporomandibular joint syndrome) Home Medications ergocalciferol (vitamin D2) 1,250 mcg (50,000 unit) capsule 50,000 unit PO FERRER 30 Days #4.285 cap 11/06/17 [History Last Taken Unknown] levothyroxine 75 mcg tablet 75 mcg PO DAILY 90 Days 11/06/17 [History Last Taken 03/20/21 06:30 75 mcg] multivitamin,vi-drjq-scsivknm 1 tab PO QDAY 11/06/17 [History Last Taken Unknown] calcium citrate 200 mg (950 mg) tablet 500 mg PO DAILY tab 04/05/18 [History Last Taken Unknown] flaxseed oil 1,000 mg capsule 1,000 mg PO DAILY 03/05/21 [History Last Taken Unknown] magnesium 250 mg tablet 250 mg PO DAILY 03/05/21 [History Last Taken Unknown] zinc 50 mg tablet 50 mg PO DAILY 03/05/21 [History Last Taken Unknown] Probiotic Acidophilus 500 mmu cells PO DAILY 03/12/21 [History Last Taken Unknown] cholecalciferol (vitamin D3) [Vitamin D3] 50 mcg PO DAILY 03/12/21 [History Last Taken Unknown] apixaban [Eliquis] 10 mg PO BID 04/22/21 [History Last Taken Unknown] Allergy/AdvReac Type Severity Reaction Status Date / Time lisinopril Allergy Intermediate Itching Verified 04/22/21 03:48 ciprofloxacin [From Cipro] Allergy Unknown Hives Verified 04/22/21 03:48 sulfamethoxazole Allergy Unknown Verified 04/22/21 03:48 [From Bactrim] trimethoprim [From Bactrim] Allergy Unknown Verified 04/22/21 03:48 erythromycin base AdvReac Unknown Jittery Verified 04/22/21 03:48 and itching Sulfa (Sulfonamide AdvReac Unknown Jittery Verified 04/22/21 03:48 Antibiotics) and itching Tetracyclines AdvReac Unknown Jittery Verified 04/22/21 03:48 and itching Family History Father CAD (coronary artery disease) Mother Breast cancer Sister Colon cancer Other Heart disease Liver cancer Surgical History H/O section History of cholecystectomy History of lumpectomy of right breast (06/19/18) Hx of tubal ligation Hx of umbilical hernia repair Social History Smoking Status: Never smoker alcohol intake: current alcohol intake frequency: holidays/special occasions only Alcohol type: wine substance use type: does not use caffeine: No what type of physical activity do you participate in: aerobics frequency: 1-2 times per week duration: 45-60 minutes/day seatbelt use: always do you feel safe at home: Yes ROS Constitutional Constitutional: Denies chills, fatigue, fever(s) or malaise Eyes Eyes: Denies blurry vision ENT HEENT: Denies headache(s) or nasal discharge Cardiovascular Cardiovascular: Reports chest pain; Denies dyspnea on exertion or syncope Respiratory/Chest Respiratory/Chest: Reports shortness of breath at rest; Denies cough or shortness of breath with exertion Gastrointestinal Gastrointestinal: Denies constipation, diarrhea, nausea or vomiting Genitourinary Genitourinary: Denies dysuria Neurologic Neurologic: Denies focal weakness, numbness or tremor(s) Psychiatric Psychiatric: Denies anxiety or depression Vital Signs Vital Signs Vital Signs: 04/22/21 03:43 04/22/21 04:27 04/22/21 05:21 Temperature 96.6 F L 97.5 F L Temperature Source Temporal Temporal Pulse Rate 108 H 89 Pulse Strength Respiratory Rate 18 18 Blood Pressure 155/92 H 140/68 H Blood Pressure Mean 113 92 Pulse Ox 95 95 Oxygen Delivery Method Room Air Room Air Room Air 04/22/21 05:22 04/22/21 06:13 04/22/21 06:14 Temperature 98.1 F Temperature Source Temporal Pulse Rate 93 93 Pulse Strength Respiratory Rate 20 H 20 H Blood Pressure 140/68 H 132/76 H 132/76 H Blood Pressure Mean 92 94 94 Pulse Ox 94 Oxygen Delivery Method Room Air 04/22/21 06:15 04/22/21 07:13 04/22/21 10:00 Temperature 98.0 F 98.1 F Temperature Source Temporal Temporal Pulse Rate 93 88 Pulse Strength Normal (2+) Respiratory Rate 20 H 21 H Blood Pressure 132/76 H 130/76 H Blood Pressure Mean 94 94 Pulse Ox 94 93 Oxygen Delivery Method Room Air Room Air Weight Weight: 179 lb Body Mass Index (BMI) 29.7 Physical Exam Const alert, oriented x3 and no apparent distress General Appearance: cooperative HEENT normocephalic and moist oral mucous membranes Eyes PERRL, EOMs intact bilaterally and conjunctivae normal Neck supple and no JVD Resp normal respiratory effort, no retractions, no use of accessory muscles and clear to auscultation bilaterally Auscultation: Negative for crackles, rales, rhonchi or wheezes Cardio regular rate, regular rhythm, S1 normal heart sound, S2 normal heart sound and no murmurs GI soft to palpation, non-tender and non-distended; Negative for hepatosplenomegaly Extremity no clubbing, cyanosis or edema Skin no rashes or lesions noted Neuro no focal motor deficits and no sensory deficits noted Psych affect normal Appearance: appropriate Results Lab / Micro Data Result Diagrams: 04/22/21 04:10 04/22/21 04:10 Labs: Laboratory Results - last 24 hr 04/22/21 04/22/21 04/22/21 04:10 04:10 09:00 WBC 4.4 RBC 4.23 Hgb 12.6 Hct 39.0 MCV 92.2 MCH 29.8 MCHC 32.3 RDW Std Deviation 49.4 H RDW Coeff of Didi 14.8 H Plt Count 262 MPV 8.9 Immature Gran % (Auto) 0.900 Neut % (Auto) 71.5 H Lymph % (Auto) 21.9 [place] % (Auto) 4.1 Eos % (Auto) 0.7 Baso % (Auto) 0.9 Absolute Neuts (auto) 3.2 Absolute Lymphs (auto) 0.97 Nucleated RBC % 0 Sodium 140 Potassium 3.7 Chloride 107 Carbon Dioxide 25.0 Anion Gap 8 BUN 16 Creatinine 0.55 Estim Creat Clear Calc 47.60 Est GFR (MDRD) Af Amer 140 Est GFR (MDRD) Non-Af 116 BUN/Creatinine Ratio 29.1 H Glucose 112 H Calcium 8.2 L Troponin I < 0.015 < 0.015 Radiology Impression Chest CTA 04/22/21 03:55 IMPRESSION: No pulmonary embolism, aortic aneurysm, or aortic dissection. Multiple pulmonary nodules. One of the largest, within the right lower lobe measures 7 x 8 mm and is suggestive of metastasis. There is a moderate right upper lobe pulmonary nodule that may represent an additional metastasis. There is hilar and mediastinal metastatic adenopathy. There is also disease to the bones, perhaps most severe within the T1 and T2 C7 vertebral bodies around the outside of the bone and affecting the paraspinal canal and tissues. Additionally some more inferior thoracic spine levels at T7 and T10. At these levels the metastatic disease a Pichardo bone and the posterior elements and likely contributes to spinal canal stenosis.. Individualized dose optimization techniques were used for this CT. at 0550 Reported and signed by: Taurus Martell MD Electronically Signed: Taurus Martell MD at 5:49 EDT Tel , Service support , Assessment & Plan Assessment/Plan (1) Chest pain: QUALIFIERS: Chest pain type: unspecified Qualified Code(s): R07.9 - Chest pain, unspecified (2) DVT (deep venous thrombosis): QUALIFIERS: Affected thrombotic vein of extremity: unspecified vein of extremity Chronicity: acute DVT location: lower extremity PLAN: 1. Chest pain rule out/HTN/HLD -She does have a heart score of 4 -We will repeat troponins -Will plan for a stress test in the morning, will transition her Eliquis to therapeutic Lovenox in case further procedures need to be obtained after the stress test -Her high blood pressure and hyperlipidemia are managed with lifestyle modifications 2. Metastatic breast cancer with acute DVT on Friday -She follows with [facility] oncology -We will transition to Lovenox and if her stress test is normal she can resume her Eliquis on discharge 3. Hypothyroidism -Stable -Continue Synthroid DVT: Therapeutic Lovenox Charges/Coding Visit Charges OBSV E&M: 19298 Initial observation care L2
[2021-04-23] VITALS (9 sets, daily range): BP systolic 122–142; BP diastolic 71–81; PULSE 87–118; RESP 15–16; TEMP 36.4–37; O2SAT 95–97
[2021-04-23] MEDS: Levothyroxine 75 MCG Tablet PO (05:49)
--- NOTE | 2021-04-23 05:55 | EKG12_ITS ---
Test Reason : AM EKG Blood Pressure : / mmHG Vent. Rate : 086 BPM Atrial Rate : 086 BPM P-R Int : 176 ms QRS Dur : 080 ms QT Int : 358 ms P-R-T Axes : 026 010 024 degrees QTc Int : 428 ms Normal sinus rhythm Septal infarct , age undetermined Abnormal ECG When compared with ECG of 22-APR-2021 08:59, MANUAL COMPARISON REQUIRED, DATA IS UNCONFIRMED Confirmed by ELIEZER FERGUSON, BIANCA ([id number]), editorial intern LOUANN ARIAS ([id number]) on 04/24/2021 9:05:44 AM Referred By: LAYLA Confirmed By:BIANCA MARTINS MD
[2021-04-23 06:20] LABS: Cholesterol 139 mg/dL (200); High Density Lipoprotein 38 mg/dL; Triglycerides 160 mg/dL; Very Low Density Lipoprotein 32 mg/dL (5-40)
--- NOTE | 2021-04-23 12:10 | CASEMGMT ---
This RN CM to room with GRANT form, explanation done-pt voices understanding, and pt signs GRANT form at this time. Original to chart and copy to pt. Pt is A/Ox4 and is at bedside. [facility] CM
[2021-04-23] MEDS: Loperamide 2 MG Capsule PO (12:45)
--- NOTE | 2021-04-23 13:32 | STRESSREP ---
Stress Test Report Pharmacologic myocardial perfusion stress test. 70-year-old lady with a history of hypertension and chest pain. Stress protocol: Resting EKG demonstrates sinus tachycardia with a rate of 105 bpm resting blood pressure is 146/84 mmHg. 0.4 mg of regadenoson was infused per usual protocol followed by rapid intravenous saline flush injection continuous EKG monitoring was performed. The maximum heart rate attained was 122 bpm which was 82% of maximum predicted heart rate the maximum workload was 1 metabolic equivalent. At rest there were no ST or T wave changes noted to suggest abnormal flow reserve and at peak infusion nonspecific ST changes were noted with did not meet the criteria for ischemia. No clinical angina was noted. Myocardial perfusion protocol. 11.8 mCi of technetium 99m sestamibi was injected at rest. 0.4 mg of regadenoson was infused per usual protocol. At peak infusion 33.3 mCi of technetium 99m sestamibi was injected stress images were obtained stress and rest images were reconstructed in comparing the short axis vertical long and horizontal long axis. Perfusion SPECT analysis: Review of the stress images demonstrate normal uptake of tracer noted in all areas of the myocardium except for small portion of the apex. The resting images demonstrate a similar pattern with a small defect at the apex as well. The rest of the patricia appear to be normally perfused. No obvious ischemia was noted. Gated SPECT analysis: The gated ejection fraction is 79% per Conclusion: Normal pharmacologic myocardial perfusion stress test. Preserved ejection fraction.
--- NOTE | 2021-04-23 14:33 | PCM.DC.SUM ---
Providers Date of Admission: 04/22/21 Primary Care Physician: Dr. Stevenson Miranda MD Reason For Visit: CHEST PAIN Diagnosis Discharge Diagnosis (1) Chest pain: Status: Acute Code(s): R07.9 - Chest pain, unspecified Qualifiers: Chest pain type: unspecified Qualified Code(s): R07.9 - Chest pain, unspecified (2) DVT (deep venous thrombosis): Status: Acute Code(s): I82.409 - Acute embolism and thrombosis of unspecified deep veins of unspecified lower extremity Qualifiers: DVT location: lower extremity Affected thrombotic vein of extremity: unspecified vein of extremity Chronicity: acute Medications at Discharge Home Medications ergocalciferol (vitamin D2) 1,250 mcg (50,000 unit) capsule 50,000 unit PO FERRER 30 Days #4.285 cap 11/06/17 levothyroxine 75 mcg tablet 75 mcg PO DAILY 90 Days 11/06/17 multivitamin,lg-bjzu-apyyuzut 1 tab PO QDAY 11/06/17 calcium citrate 200 mg (950 mg) tablet 500 mg PO DAILY tab 04/05/18 flaxseed oil 1,000 mg capsule 1,000 mg PO DAILY 03/05/21 magnesium 250 mg tablet 250 mg PO DAILY 03/05/21 zinc 50 mg tablet 50 mg PO DAILY 03/05/21 Probiotic Acidophilus 500 mmu cells PO DAILY 03/12/21 cholecalciferol (vitamin D3) [Vitamin D3] 50 mcg PO DAILY 03/12/21 Eliquis 10 mg PO BID 04/22/21 loperamide [Imodium A-D] 2 mg PO Q4H PRN 04/23/21 Hospital Course Operations None Procedures Stress test Summary of Care Provided Minutes Spent on Discharge: 35 Hospital Course: Patient is a 70 y/o F admitted via the ED on 04/22/2021 with a complaint of chest pain which woke her up from bed. She has a history of metastatic breast cancer and new onset DVT for which she is being treated with eliquis. CTA of the chest on admission was negative for PE. Troponins x 3 were negative, and EKG showed no acute ST changes. She was admitted and managed for chest pain to rule out ACS. She had a stress test on 04/23/2021 which was negative for any evidence of stress induced ischemia. She remained stable and was discharged home on 04/23/2021. She is to follow up with her PCP in 1-2 weeks. Patient seen and examined. She has no complaints. Review of systems otherwise negative. Labs and vitals reviewed. Home meds reviewed and reconciled. Physical Exam Const alert, oriented x3 and no apparent distress General Appearance: cooperative, comfortable and well kempt Orientation / Consciousness: awake Exam Limitations: no limitations and altered mental status HEENT normocephalic, head/scalp atraumatic, hearing grossly normal bilaterally and moist oral mucous membranes Eyes PERRL Neck no lymphadenopathy Resp normal respiratory effort, no retractions, no use of accessory muscles and clear to auscultation bilaterally Cardio regular rate, regular rhythm, S1 normal heart sound, S2 normal heart sound and no murmurs GI normal to inspection, nondistended, normoactive bowel sounds, soft to palpation, non-tender and non-distended Extremity normal to inspection, full ROM and no clubbing, cyanosis or edema Skin no rashes or lesions noted and no wounds Neuro oriented x3 Sensorium / Orientation: awake and alert Psych affect normal Weight / BMI Weight Weight: 179 lb Body Mass Index (BMI) 29.7 ABG / Lab / Microbiology Data Result Diagrams: 04/22/21 04:10 04/22/21 04:10 Laboratory: Laboratory Results - last 24 hr 04/23/21 05:36 Triglycerides 160 Cholesterol 139 LDL Cholesterol 69 VLDL Cholesterol 32 HDL Cholesterol 38 L D/C Instructions Discharge Diet: 2000 mg Sodium Diet Discharge Activity: Return to Normal Activity Meaningful Use Info Meaningful Use Diagnoses (Choose all that apply): None applicable Discharge Plan Admission Admit Date/Time: 04/22/21 07:10 Primary Reason for Your Visit: chest pain Attending Provider: Paola Prado Primary Care Provider: Stevenson Miranda Instructions Patient Instructions: ED Chest Pain, Noncardiac Discharge Orders/Prescriptions Prescriptions: Continued levothyroxine 75 mcg tablet 75 mcg PO DAILY 90 Days RF: 0 ergocalciferol (vitamin D2) 50,000 unit capsule 50,000 unit PO FERRER 30 Days Qty: 4.285 RF: 0 multivitamin,hn-ecrj-pndaidod tablet tablet 1 tab PO QDAY RF: 0 calcium citrate 200 mg (950 mg) tablet 500 mg PO DAILY RF: 0 magnesium 250 mg tablet 250 mg PO DAILY RF: 0 zinc 50 mg tablet 50 mg PO DAILY RF: 0 flaxseed oil 1,000 mg capsule 1,000 mg PO DAILY RF: 0 cholecalciferol (vitamin D3) [Vitamin D3] 50 mcg (2,000 unit) Capsule 50 mcg PO DAILY RF: 0 Probiotic Acidophilus 1.5 mg (250 million cell) Capsule 500 mmu cells PO DAILY RF: 0 Eliquis 5 mg Tablet 10 mg PO BID RF: 0 loperamide [Imodium A-D] 2 mg Capsule 2 mg PO Q4H PRN (Reason: Diarrhea) RF: 0 Referrals / Follow Up: Stevenson Miranda MD [Primary Care Provider] - Within 2 Weeks Disposition Disposition (needs filled in before D/C Order can be placed): Home, self care Charges/Coding Visit Charges OBSV E&M: 77759 Observation care discharge
[2021-04-23] MEDS: 0.9% Saline Lock 10 ML Syringe IV (16:41)
== END 2021-04-23 14:52 | disposition home or self-care (01) ==
LOC: ED 07:12 → PCU 07:56
PROVIDERS: Admitting Provider Family Medicine; Emergency Provider Emergency Medicine; PCP Family Medicine; Visit Provider Student in an Organized Health Care Education/Training Program
DX: R07.89 Other chest pain (principal); I82.409 Acute embolism and thrombosis of unspecified deep veins of unspecified lower extremity; C50.919 Malignant neoplasm of unspecified site of unspecified female breast; I10 Essential (primary) hypertension; C79.9 Secondary malignant neoplasm of unspecified site; R91.8 Other nonspecific abnormal finding of lung field; E78.2 Mixed hyperlipidemia; K58.9 Irritable bowel syndrome, unspecified; E03.9 Hypothyroidism, unspecified; Z92.3 Personal history of irradiation; Z79.899 Other long term (current) drug therapy; Z79.01 Long term (current) use of anticoagulants
CPT/HCPCS: 36415; 36591; 71275; 78452; 80048; 80061; 84484; 85025; 93005; 93017; 96372; 96374; 96375; 99218; 99284; A9500; J7030; Q9967; A4216; G0378; J2405; J2785

== ENCOUNTER → 2021-07-05 10:22 | Outpatient (CLI) | payer MEDICARE, OTHER, SELFPAY ==
--- NOTE | 2021-07-05 10:28 | ECHOTEE_ITS ---
Reason For Study: LV THROMBUS Medication TRINI probe 6VT-D (SN [id number]) passed with minimal difficulty. No complications were noted. Cetacaine Topical Shelby given X3 orally. Versed 2 mg given slow IVP. Fentanyl 50 mcg given slow IVP. Performed a rapid injection of agitated mix of 9 cc saline and 1cc air to assess for atrial septal defect. Left Ventricle Normal LV size. Left ventricular systolic function is normal. The estimated ejection fraction is 55 %. No regional wall motion abnormalities noted. Right Ventricle Normal RV size. Normal systolic function. Atria Normal atrial septum. Bubble contrast study negative for right to left interatrial shunt. Normal left atrium. No thrombus is detected in the left atrial appendage. Normal right atrium. Mitral Valve Normal mitral valve. Tricuspid Valve Normal tricuspid valve. Aortic Valve Normal aortic valve. Pulmonic Valve Normal pulmonic valve. Vessels Normal aortic root. The pulmonary artery is normal size. Pericardium No pericardial effusion. ECHO/Echo Transesophageal (TRINI) Interpretation Summary Normal LV size. Left ventricular systolic function is normal. The estimated ejection fraction is 55 %. No thrombus is noted in the left ventricle or ventricular apex. Ordering Physician: Da Solorio Referring Physician: JANET REYES Performed By: Silvana Servin RDCS
== END ==
PROVIDERS: PCP Family Medicine; Visit Provider Internal Medicine Cardiovascular Disease
DX: I51.3 Intracardiac thrombosis, not elsewhere classified (principal); I11.9 Hypertensive heart disease without heart failure; I82.409 Acute embolism and thrombosis of unspecified deep veins of unspecified lower extremity; E78.2 Mixed hyperlipidemia; C50.919 Malignant neoplasm of unspecified site of unspecified female breast; R07.9 Chest pain, unspecified
CPT/HCPCS: 93312; 93320; 93325; J7040; A4216

== ENCOUNTER → 2022-04-11 | Outpatient (CLI) | payer MEDICARE, OTHER, SELFPAY | END | disposition home or self-care (01) | LOC: LAB.FUTURE 09:41 → LAB 09:56 | PROVIDERS: PCP Family Medicine; Referring Provider Family Medicine; Visit Provider Family Medicine | DX: E03.9 Hypothyroidism, unspecified (principal) | CPT/HCPCS: 36415; 84443 ==

== ENCOUNTER → 2022-05-28 | Outpatient (CLI) | payer MEDICARE, OTHER, SELFPAY ==
[2022-05-28 11:05] LABS: Thyroid Stim Hormone (TSH) 0.35 uIU/mL (0.358-3.74)
== END | disposition home or self-care (01) ==
LOC: LAB 09:00
PROVIDERS: PCP Family Medicine; Visit Provider Family Medicine
DX: E03.9 Hypothyroidism, unspecified (principal)
CPT/HCPCS: 36415; 84443

== ENCOUNTER → 2022-10-11 | Outpatient (CLI) | payer MEDICARE, OTHER, SELFPAY ==
[2022-10-11 15:54] LABS: ALB/GLOB Ratio 0.9 RATIO (0.9-2.4); AST(SGOT) 48 U/L (15-37); Alanine Aminotransfer ALT/SGPT 54 U/L (13-56); Albumin, Serum 3.1 g/dL (3.2-5.0); Alkaline Phosphatase 101 U/L (45-117); Anion Gap 7 (5-15); BUN 14 mg/dL (7-18); BUN/Creat Ratio 18.8 RATIO (10-20); Calcium,Total 8.9 mg/dL (8.5-10.1); Chloride 107 mmol/L (98-107); Creatinine, Serum 0.74 mg/dL (0.55-1.02); EST Glomerular Filtration Rate 81 mL/min (>60); Est Glom Filt Rate - Afr Amer 98 mL/min (>60); Globulin 3.3 g/dL (2.2-4.2); Glucose 134 mg/dL (74-106); Magnesium 2.2 mg/dL (1.6-2.6); Potassium 4.2 mmol/L (3.5-5.1); Protein, Total 6.4 g/dL (6.4-8.2); Sodium Level 140 mmol/L (136-145)
== END | disposition home or self-care (01) ==
LOC: LABSPEC 14:54
PROVIDERS: PCP Family Medicine; Referring Provider Internal Medicine Hematology & Oncology; Visit Provider Internal Medicine Hematology & Oncology
DX: M25.551 Pain in right hip (principal)
CPT/HCPCS: 80053; 83735

== ENCOUNTER 2024-01-17 08:10 | Emergency (ER) | payer MEDICARE, OTHER, SELFPAY ==
[2024-01-17 08:11] VITALS: BP 150/69; PULSE 117; RESP 20; TEMP 37.3; O2SAT 95; BMI 28.3
--- NOTE | 2024-01-17 08:25 | EDS_ITS ---
HPI History of Present Illness Chief Complaint: Fever Informant: patient Narrative Narrative: Patient presents after having had a fever of 101.4 this morning at home. She called oncology and they advised that she come to the ER. She is following them for metastatic breast cancer. She has been undergoing treatments for about 3 years, she started to new chemotherapeutic agents earlier this week, on Friday with today being Friday. She had a fever that was 100.4 shortly after the treatment, resolved with Tylenol and did not recur until this morning. Other than a minor nonproductive cough, she denies any other symptoms coverages feeling warm this morning. [facility] Medical History (Updated 01/17/24 @ 11:[address] Mainor Pablo MD) Acute maxillary sinusitis, unspecified Anxiety Back pain Breast cancer Cancer Chronic pain Diverticulosis Edema Essential (primary) hypertension History of multiple pulmonary nodules History of radiation therapy History of vertigo Hyperlipemia, mixed Hypothyroidism IBS (irritable bowel syndrome) Metastatic breast cancer Nausea & vomiting Non-smoker Osteoporosis Thyroid disease TMJ (temporomandibular joint syndrome) Home Medications levothyroxine 75 mcg tablet 75 mcg PO DAILY 90 days 11/06/17 [History Last Taken 03/20/21 06:30 75 mcg] multivitamin,ec-ekjh-hzfjhkim (Complete Multivitamin tablet) 1 tab PO QDAY 11/06/17 [History Last Taken Unknown] calcium citrate 200 mg (950 mg) tablet 500 mg PO DAILY 04/05/18 [History Last Taken Unknown] flaxseed oil 1,000 mg capsule 1,000 mg PO DAILY 03/05/21 [History Last Taken Unknown] Lactobacillus acidophilus 250 million cell capsule (Probiotic Acidophilus) 500 mmu cells PO DAILY 03/12/21 [History Last Taken Unknown] cholecalciferol (vitamin D3) 50 mcg (2,000 unit) capsule (Vitamin D3) 50 mcg PO DAILY 03/12/21 [History Last Taken Unknown] loperamide 2 mg capsule (Imodium A-D) 2 mg PO Q4H PRN Diarrhea 04/23/21 [History Last Taken 04/15/21] apixaban 5 mg tablet (Eliquis) 5 mg PO BID 06/28/21 [History Last Taken Unknown] ondansetron HCl 4 mg tablet 4 mg PO DAILY PRN 06/28/21 [History Last Taken Unknown] ado-trastuzumab emtansine 100 mg intravenous solution (Kadcyla) mg .Route 01/03/22 [History Last Taken Unknown] zoledronic acid 4 mg intravenous solution mg .Route 01/03/22 [History Last Taken Unknown] potassium chloride 40 mEq/15 mL oral liquid 20 meq PO TID 03/07/23 [History Last Taken Unknown] pyridoxine (vitamin B6) 25 mg tablet 25 mg PO DAILY 03/07/23 [History Last Taken Unknown] Allergy/AdvReac Type Severity Reaction Status Date / Time lisinopril Allergy Intermediate Itching Verified 01/17/24 08:13 ciprofloxacin [From Cipro] Allergy Unknown Hives Verified 01/17/24 08:13 sulfamethoxazole Allergy Unknown Verified 01/17/24 08:13 [From Bactrim] trimethoprim [From Bactrim] Allergy Unknown Verified 01/17/24 08:13 erythromycin base AdvReac Unknown Jittery Verified 01/17/24 08:13 and itching Sulfa (Sulfonamide AdvReac Unknown Jittery Verified 01/17/24 08:13 Antibiotics) and itching Tetracyclines AdvReac Unknown Jittery Verified 01/17/24 08:13 and itching Family History Father CAD (coronary artery disease) Mother Breast cancer Sister Colon cancer Other Heart disease Liver cancer Surgical History (Updated 01/17/24 @ 08:[address] Mainor Pablo MD) H/O section History of cholecystectomy History of lumpectomy of right breast (06/19/18) History of partial mastectomy of right breast Hx of tubal ligation Hx of umbilical hernia repair Social History Smoking Status: Never smoker alcohol intake: current alcohol intake frequency: holidays/special occasions only Alcohol type: wine substance use type: does not use caffeine: No what type of physical activity do you participate in: aerobics frequency: 1-2 times per week duration: 45-60 minutes/day seatbelt use: always do you feel safe at home: Yes ROS ROS ED Constitutional Constitutional ED: Reports fever(s); Denies chills Eyes Eyes: Denies change in vision or diplopia ENT ENT ED: Denies rhinorrhea or sore throat Cardiovascular Cardiovascular: Denies chest pain or palpitations Respiratory/Chest Respiratory/Chest: Reports cough; Denies dyspnea Gastrointestinal Gastrointestinal: Denies abdominal pain, diarrhea, nausea or vomiting Genitourinary Genitourinary ED: Denies dysuria or hematuria Musculoskeletal Musculoskeletal: Denies back pain or neck pain Integumentary Denies abscess or rash Neurologic Neurologic: Denies headache(s), paresthesias or weakness Psychiatric Psychiatric: Denies anxiety or suicidal thoughts EXAM Physical Exam Const Vital Signs: 01/17/24 08:11 01/17/24 09:05 01/17/24 09:10 Temperature 99.1 F 99.0 F Temperature Source Temporal Oral Pulse Rate 117 H 100 Respiratory Rate 20 H 16 Respiratory Pattern Normal Blood Pressure 150/69 H 141/68 H Blood Pressure Mean 96 92 Pulse Ox 95 98 Oxygen Delivery Method Room Air Room Air 01/17/24 10:58 Temperature 99.0 F Temperature Source Oral Pulse Rate 100 Respiratory Rate 16 Respiratory Pattern Blood Pressure 141/63 H Blood Pressure Mean 89 Pulse Ox 98 Oxygen Delivery Method Room Air Positive well nourished and well developed General Appearance ED: well developed and NAD HEENT Reports moist mucous membranes normocephalic and atraumatic Eyes PERRL and EOMs intact bilaterally Neck full ROM and supple Resp normal respiratory effort and clear to auscultation bilaterally Cardio regular rate, regular rhythm and no murmurs GI non-tender and non-distended Auscultation: normoactive bowel sounds Palpation: soft Back/Spine no CVA tenderness General Back: other FROM Extremity normal to inspection General Extremety ED: Negative for edema, pulses abnormal or tenderness General Extremity: Negative for edema or pulses abnormal Neuro oriented x3, CN's II-XII intact bilaterally, no sensory deficits noted and gait normal Sensorium / Orientation: awake and alert Motor Exam: strength 5/5 throughout Psych mental status grossly normal Skin no rashes or lesions noted and no wounds MDM MDM MDM Narrative Medical decision making narrative: Labs reviewed. Blood cultures sent. She was given some IV fluids. Temperature holding steady around 99. Her workup is really unremarkable. She is not neutropenic, her ANC is almost 8000. No sign of urine infection, two-view chest x-ray my interpretation negative for pneumonia/consolidation, radiology in agreement. Urine looks clean. Patient doing well here and eating/drinking well. Discussed with Dr. Powers who is on-call for oncology at [facility], he does not recommend antibiotics at this time and is comfortable with her being discharged home for close outpatient follow-up, calling the office for recurrent temperatures over 101. Patient family counseled they are comfortable with that plan. Lab Data Attestation: I reviewed the patient's lab results. Labs: Laboratory Results - last 24 hr 01/17/24 01/17/24 08:32 08:44 WBC 8.4 RBC 3.62 L Hgb 11.7 L Hct 36.7 L MCV 101.4 H MCH 32.3 H MCHC 31.9 L RDW Std Deviation 58.4 H RDW Coeff of Didi 15.5 H Plt Count 101 L MPV 9.7 Immature Gran % (Auto) 0.400 Neut % (Auto) 94.0 H Lymph % (Auto) 4.2 L Island % (Auto) 0.8 Eos % (Auto) 0.4 Baso % (Auto) 0.2 Absolute Neuts (auto) 7.9 H Absolute Lymphs (auto) 0.35 L Nucleated RBC % 0 Differential Comment SCANNED Reactive Lymphocytes 1+ Sodium 137 Potassium 4.0 Chloride 108 H Carbon Dioxide 25.0 Anion Gap 4 L BUN 10 Creatinine 0.67 Estim Creat Clear Calc 62.91 Est GFR (MDRD) Af Amer 110 Est GFR (MDRD) Non-Af 91 BUN/Creatinine Ratio 14.9 Glucose 121 H Lactic Acid 1.4 Calcium 9.0 Total Bilirubin 1.70 H AST 72 H ALT 73 H Alkaline Phosphatase 109 Total Protein 7.3 Albumin 3.0 L Globulin 4.3 H Albumin/Globulin Ratio 0.7 L Urine Color Yellow Urine Clarity Clear Urine pH 7.0 Ur Specific [place] 1.010 Urine Protein 15 H Urine Glucose (UA) Normal Urine Ketones Negative Urine Occult Blood Negative Urine Nitrite Negative Urine Bilirubin Negative Urine Urobilinogen 8 H Ur Leukocyte Esterase 25 H Urine RBC 0 SEEN Urine WBC 0 SEEN Ur Squamous Epith Cells 0 SEEN Urine Bacteria 0 SEEN Urine Mucus 0 SEEN Radiography Diagnostic Testing: Clinical Impression(s) from Imaging Studies Chest X-Ray 01/17/24 09:35 IMPRESSION: No radiographic evidence of acute cardiopulmonary disease. Electronically Signed: Rafael Santo MD at 10:04 EST , Management Discussion w/another healthcare provider: Special Delivery Clerk (H/O Dr. Powers) Discharge Plan Triage Chief Complaint: Fever ED Provider: Mainor Pablo Dx/Rx/DC Orders Clinical Impression: Fever, Metastatic breast cancer Instructions: ED FUO Adult Prescriptions: No Action levothyroxine 75 mcg tablet 75 mcg PO DAILY 90 Days Patient Comments: multivitamin,pv-ogzs-nemconyt tablet tablet 1 tab PO QDAY calcium citrate 200 mg (950 mg) tablet 500 mg PO DAILY flaxseed oil 1,000 mg capsule 1,000 mg PO DAILY Rx Instructions: administer with a meal ondansetron HCl 4 mg tablet 4 mg PO DAILY PRN Patient Comments: TAKE 2 TABLETS BY MOUTH EVERY 8 HOURS NEEDED. FOR NAUSEA Kadcyla 100 mg recon soln .Route Rx Instructions: Per Oncology zoledronic acid 4 mg recon soln .Route Rx Instructions: Per Oncology pyridoxine (vitamin B6) 25 mg tablet 25 mg PO DAILY potassium chloride 40 mEq/15 mL liquid 20 meq PO TID cholecalciferol (vitamin D3) [Vitamin D3] 50 mcg (2,000 unit) Capsule 50 mcg PO DAILY Rx Instructions: ON FRIDAY Probiotic Acidophilus 1.5 mg (250 million cell) Capsule 500 mmu cells PO DAILY loperamide [Imodium A-D] 2 mg Capsule 2 mg PO Q4H PRN (Reason: Diarrhea) Eliquis 5 mg tablet 5 mg PO BID Primary Care Provider: Jamin Foss Referrals: Jamin Foss DO [Primary Care Provider] - Alex Moody DO [Med Staff - Active Staff] - (After the weekend follow-up; if you have any fevers over 101 again, call the on-call oncologist for further instructions) Disposition Disposition: Home, Self Care
[2024-01-17 08:50] LABS: Bacteria 0 SEEN /hpf (None Seen); Mucous, Urine 0 SEEN /hpf (<or=2+); Red Blood Cells-Urine 0 SEEN /hpf (0-5); Squamous Epithelial Cells - UA 0 SEEN /hpf (5-10); White Blood Cells 0 SEEN /hpf (0-5)
[2024-01-17 08:58] LABS: Absolute Lymphocyte Count 0.35 X10^3/uL (0.83-4.51); Absolute Neutrophil Count 7.9 X10^3/uL (2.0-7.7); Basophil# 0.02 X10^3/uL; Basophil% 0.2 % (0-1); Eosinophil# 0.03 X10^3/uL; Eosinophils% 0.4 % (0-5); Hematocrit 36.7 % (37-47); Hemoglobin 11.7 g/dL (12.0-15.0); Lymphocyte # 0.35 X10^3/ul (0.83-4.51); Lymphocyte % 4.2 % (19-41); Mean Corp Hgb Conc 31.9 g/dL (32-36); Mean Corpuscular Hgb 32.3 pg (27.0-32.0); Mean Corpuscular Volume 101.4 fL (81-99); Mean Platelet Vol. 9.7 fl (6.2-12.0); Monocyte# 0.07 X10^3/uL; Monocyte% 0.8 % (0-10); NRBC Flagged by Analyzer 0 % (0-5); Neutrophil # 7.88 X10^3/uL (2.7-7.7); POSITIVE DIFFERENTIAL YES; POSITIVE MORPHOLOGY YES; Platelet Count 101 K/mm3 (150-450); RBC Distribution Width CV 15.5 % (11.6-14.6); RBC Distribution Width SD 58.4 fl (35.1-43.9); Red Blood Count 3.62 M/mm3 (4.2-5.4); White Blood Count 8.4 K/mm3 (4.4-11.0)
[2024-01-17] MEDS: 0.9% Normal Saline (1000mL) 1,000 ML 1000 ML IV (09:08)
[2024-01-17 09:10] VITALS: BP 141/68; PULSE 100; RESP 16; TEMP 37.2; O2SAT 98
[2024-01-17 09:10] LABS: ALB/GLOB Ratio 0.7 RATIO (0.9-2.4); AST(SGOT) 72 U/L (15-37); Alanine Aminotransfer ALT/SGPT 73 U/L (13-56); Alkaline Phosphatase 109 U/L (45-117); Anion Gap 4 (5-15); BUN 10 mg/dL (7-18); BUN/Creat Ratio 14.9 RATIO (10-20); Chloride 108 mmol/L (98-107); Creatinine, Serum 0.67 mg/dL (0.55-1.02); EST Glomerular Filtration Rate 91 mL/min (>60); Est Glom Filt Rate - Afr Amer 110 mL/min (>60); Estimated Creatinine Clearance 62.91 ml/min; Globulin 4.3 g/dL (2.2-4.2); Glucose 121 mg/dL (74-106); Protein, Total 7.3 g/dL (6.4-8.2); Sodium Level 137 mmol/L (136-145)
[2024-01-17 09:13] LABS: Color, Urine Yellow (Yellow); Glucose, Dipstick Normal (Normal); Ketone-Dipstick Negative (Negative); Leukocyte Esterase-Dipstick 25 /ul (Negative); Nitrite-Dipstick Negative (Negative); Occult Blood-Urine Negative /ul (Negative); Protein-Dipstick 15 mg/dl (Negative); Urine Bilirubin Dipstick Negative (Negative); Urine Clarity Clear (Clear); Urine Urobilinogen 8 mg/dl (Normal)
[2024-01-17 09:17] LABS: Lactic Acid 1.4 mmol/L (0.4-1.9)
--- NOTE | 2024-01-17 09:35 | RAD_ITS ---
INDICATION: fever, cough EXAMINATION/TECHNIQUE: X-RAY - XR Chest 2 Views COMPARISON: No relevant prior comparison study available FINDINGS: LINES/DEVICES: Left-sided Port-A-Cath with the tip in the superior vena cava. LUNGS: No consolidation, edema or effusion. No pneumothorax. MEDIASTINUM AND CARDIOVASCULAR STRUCTURES: Cardiac silhouette not enlarged. Central airways and mediastinal contour are unremarkable. BONES AND SOFT TISSUES: Degenerative changes in the thoracic spine. Surgical clips in right axilla. RAD/Chest PA and Lateral IMPRESSION: No radiographic evidence of acute cardiopulmonary disease. Electronically Signed: Rafael Santo MD at 10:04 EST ,
[2024-01-17 10:04] LABS: Differential Indicated SCAN CRITERIA MET
[2024-01-17 10:08] LABS: Differential Comment SCANNED; Reactive Lymphocyte 1+
[2024-01-17 10:58] VITALS: BP 141/63; PULSE 100; RESP 16; TEMP 37.2; O2SAT 98
[2024-01-17 11:36] VITALS: BP 129/63; PULSE 101; RESP 16; TEMP 37.1; O2SAT 94
[2024-01-17] MEDS: 0.9 % NaCl (Sterile) Posiflush 10 mL IV (11:41)
== END 2024-01-17 11:45 | disposition home or self-care (01) ==
PROVIDERS: Emergency Provider Emergency Medicine; PCP Family Medicine; Visit Provider Emergency Medicine
DX: R50.9 Fever, unspecified (principal); C79.81 Secondary malignant neoplasm of breast
CPT/HCPCS: 36415; 36591; 71046; 80053; 81001; 83605; 85025; 87040; 87631; 96360; 96361; 99282; J7030; A4216

== ENCOUNTER 2024-03-20 19:17 | Observation (INO) | payer MEDICARE, OTHER, SELFPAY ==
[2024-03-20 19:19] VITALS: BP 157/80; PULSE 82; RESP 80; TEMP 36.6; O2SAT 93; BMI 29.7
[2024-03-20 19:46] VITALS: O2SAT 98
--- NOTE | 2024-03-20 19:47 | CT_ITS ---
STUDY: CT BRAIN WITH AND WITHOUT CONTRAST REASON FOR EXAM: Female, 73 years old. breast ca with mets (no known brain mets) and has RADIATION DOSAGE (If Supplied By Facility): CTDIvol = ( 44.99 ) mGy, DLP = ( 1648.46 ) mGycm TECHNIQUE: Transaxial CT imaging of the brain was performed pre and post contrast administration. The examination was performed with intravenous administration of IV 50mL Isovue-370. Individualized dose optimization techniques were used for this CT. COMPARISON: None. FINDINGS: Normal soft tissue structures. Normal calvarium. There is mild cerebral atrophy with widening of the extra-axial spaces and ventricular dilatation. There are areas of decreased attenuation within the white matter tracts of the supratentorial brain, consistent with microvascular disease changes. Normal basal ganglia and thalami. Normal brainstem. Normal cerebellum. There is a 1 cm round area of decreased attenuation within peripheral enhancement within the superior right temporal lobe near the sylvian fissure on image 22 worrisome for metastasis. MRI with contrast would be useful. There is no intracranial hemorrhage. There are no findings of an acute ischemic infarction. Normal visualized paranasal sinuses. CT/Brain/Head W/WO Contrast IMPRESSION: Chronic involutional changes of the brain. Suspect 1 cm metastasis of the superior right temporal lobe near the sylvian fissure and correlation with MRI with contrast may be useful. Electronically Signed: Hilton Marie MD at 21:04 EDT ,
--- NOTE | 2024-03-20 19:51 | EX.ED.DYSGE1 ---
HPI History of Present Illness Chief Complaint: Nausea/Vomiting Informant: patient and family Onset/Context/Timing Onset: Today Narrative Narrative: 73-year-old female has had breast cancer and been on undergoing a chemotherapy for the last 3 years. Her last chemotherapy was on Friday. She has no metastases to her pelvis and ribs. No known brain mets. Today she started having dizziness which she described as lightheadedness and being off balance. Really denies any significant headache. No fall or trauma. She has had vertigo before. Says it would not feel like that. And she had several episodes of nausea and vomiting. She did have a fever of 101 last night but says she often gets a fever after having chemotherapy which her last 1 was on Friday. She is also on Eliquis for prior DVTs. Denies any weakness to her upper or lower extremities. Prior similar symptoms: No Recent Illness/Hospitalization: No [facility] Medical History Acute maxillary sinusitis, unspecified Anxiety Back pain Breast cancer Cancer Chronic pain Diverticulosis Edema Essential (primary) hypertension History of multiple pulmonary nodules History of radiation therapy History of vertigo Hyperlipemia, mixed Hypothyroidism IBS (irritable bowel syndrome) Metastatic breast cancer Nausea & vomiting Non-smoker Osteoporosis Thyroid disease TMJ (temporomandibular joint syndrome) Home Medications levothyroxine 75 mcg tablet 125 mcg PO DAILY 90 days 11/06/17 [History Last Taken 03/20/21 06:30 75 mcg] calcium citrate 200 mg (950 mg) tablet 500 mg PO DAILY 04/05/18 [History Last Taken Unknown] cholecalciferol (vitamin D3) 50 mcg (2,000 unit) capsule (Vitamin D3) 50 mcg PO DAILY 03/12/21 [History Last Taken Unknown] loperamide 2 mg capsule (Imodium A-D) 2 mg PO Q4H PRN Diarrhea 04/23/21 [History Last Taken 04/15/21] apixaban 5 mg tablet (Eliquis) 2.5 mg PO BID 06/28/21 [History Last Taken Unknown] ondansetron HCl 4 mg tablet 4 mg PO DAILY PRN nause 06/28/21 [History Last Taken Unknown] potassium chloride 40 mEq/15 mL oral liquid 20 meq PO TID 03/07/23 [History Last Taken Unknown] pyridoxine (vitamin B6) 25 mg tablet 25 mg PO DAILY 03/07/23 [History Last Taken Unknown] Allergy/AdvReac Type Severity Reaction Status Date / Time lisinopril Allergy Intermediate Itching Verified 01/17/24 08:13 ciprofloxacin [From Cipro] Allergy Unknown Hives Verified 01/17/24 08:13 sulfamethoxazole Allergy Unknown Verified 01/17/24 08:13 [From Bactrim] trimethoprim [From Bactrim] Allergy Unknown Verified 01/17/24 08:13 erythromycin base AdvReac Unknown Jittery Verified 01/17/24 08:13 and itching Sulfa (Sulfonamide AdvReac Unknown Jittery Verified 01/17/24 08:13 Antibiotics) and itching Tetracyclines AdvReac Unknown Jittery Verified 01/17/24 08:13 and itching Family History Father CAD (coronary artery disease) Mother Breast cancer Sister Colon cancer Other Heart disease Liver cancer Surgical History H/O section History of cholecystectomy History of lumpectomy of right breast (06/19/18) History of partial mastectomy of right breast Hx of tubal ligation Hx of umbilical hernia repair Social History Smoking Status: Never smoker alcohol intake: current alcohol intake frequency: holidays/special occasions only Alcohol type: wine substance use type: does not use caffeine: No what type of physical activity do you participate in: aerobics frequency: 1-2 times per week duration: 45-60 minutes/day seatbelt use: always do you feel safe at home: Yes ROS ROS ED ROS Narrative Nausea and vomiting today. Fever yesterday Review of Systems ROS Unobtainable: Denies due to encephalopathy Constitutional Constitutional ED: Denies anorexia Eyes Eyes: Reports none ENT ENT ED: Reports none Cardiovascular Cardiovascular: Reports none Respiratory/Chest Respiratory/Chest: Reports none; Denies cough Gastrointestinal Gastrointestinal: Reports nausea and vomiting Genitourinary Genitourinary ED: Denies decreased urination Musculoskeletal Musculoskeletal: Reports none Integumentary Reports none Neurologic Neurologic: Reports dizziness Psychiatric Psychiatric: Reports none Endocrine Endocrinology: Reports none Hematologic/Lymphatic Hematologic/Lymphatic: Reports none Allergic/Immunologic Allergic/Immunologic ED: Reports none EXAM Physical Exam Narrative Exam Narrative: Sent via female vital signs stable afebrile. Temperature 98 degrees. Pulse ox 93% on room air no hypoxia. No distress. Sitting upright in bed. Family at bedside. H EENT exam pupils round reactive light. She has very active horizontal nystagmus. No facial droop. Normal speech. No trauma. Neck nontender. Lungs clear to auscultation. Heart regular rhythm rate about 80 no murmur. Chest wall and ribs nontender. Left Mediport. Abdomen soft nontender. Moving all 4 extremities. 5 out of 5 surety bond agent strength bilaterally. Dorsi plantarflexion intact. Fingertip to nose within normal limits. Neurologically she is awake and alert. Answering questions and following commands. Her NIH score is 0. The only neurological finding is horizontal nystagmus. Const Vital Signs: 03/20/24 19:19 03/20/24 19:46 03/20/24 21:08 Temperature 98 F 97.8 F Temperature Source Oral Oral Pulse Rate 82 86 Respiratory Rate 80 H 22 H Respiratory Effort Normal Respiratory Depth Normal Respiratory Pattern Normal Blood Pressure 157/80 H 165/91 H Blood Pressure Mean 105 115 Pulse Ox 93 94 Oxygen Delivery Method Room Air Room Air Room Air Positive well nourished, well developed, alert, oriented x3, no apparent distress, average body habitus and no limitations; Negative for cachectic, contractures or unkempt General Appearance ED: active, cooperative, comfortable, well kempt and well developed; Negative for unkempt, cachectic or contractures Nutritional Appearance: Negative for cachectic HEENT Reports normocephalic, head/scalp atraumatic and hearing grossly normal bilaterally normocephalic, normal to inspection and atraumatic; Negative for trauma Face and Sinus: normal facial exam Nose: external nose normal Mouth ED: Yes oral and palatal mucosa normal Mouth: oral and palatal mucosa normal Throat: posterior oropharynx normal Eyes PERRL, EOMs intact bilaterally and no scleral icterus Eyes Narrative: Bilateral horizontal nystagmus. Periorbital: periorbital findings normal Eyelid: eyelids normal Conjunctiva: conjunctiva normal Sclera: sclera normal Cornea: cornea normal Pupil: PERRL EOM: nystagmus horizontal Neck full ROM, No nuchal rigidity, no lymphadenopathy, supple, no meningeal signs and no JVD Lymph Lymphatic: no lymphadenopathy noted and no lymphedema noted; Negative for lymphedema or lymphadenopathy Chest Wall inspection of chest normal Resp normal respiratory effort, normal air movement, no retractions, no use of accessory muscles and clear to auscultation bilaterally Effort and Inspection: able to speak in complete sentences Auscultation: clear to auscultation bilaterally Cardio regular rate, regular rhythm, S1 normal heart sound, S2 normal heart sound, no murmurs, no rub, no gallops and no clicks Rate: regular rate Rhythm: regular rhythm GI normal to inspection, nondistended, normoactive bowel sounds, soft to palpation, non-tender, non-distended, no masses and no bruits Palpation: soft; Negative for firm, tender, guarding or rebound tenderness present no CVA tenderness Back/Spine no CVA tenderness Extremity normal to inspection, full ROM, no joint enlargement, no clubbing, cyanosis or edema, no calf tenderness and no pedal edema Neuro oriented x3, CN's II-XII intact bilaterally, moves all extremities, no focal motor deficits and no sensory deficits noted Sensorium / Orientation: awake, alert, oriented to person, oriented to place, oriented to time and orientation impaired; Negative for confused, lethargic, somnolent, obtunded or stuporous Meningeal Signs: no meningeal signs Coordination / Balance: [id number] test normal Speech: speech normal Motor Exam: strength 5/5 throughout Coordination: [id number] test normal Psych mental status grossly normal, thought process normal, cooperative, affect normal and speech normal Appearance: Negative for unkempt Attitude: calm and engaged Activity / Motor Behavior: appropriate eye contact Speech: normal speech Mood & Affect: euthymic mood Thought Process: normal thought process Thought Content: normal thought content Attention / Concentration: attention grossly intact Skin no rashes or lesions noted, no wounds, no jaundice, no petechiae and no mottling General Skin Exam: no breakdown Lesions: no lesions Rashes: no rashes Trauma: no lacerations or abrasions MDM MDM MDM Narrative Medical decision making narrative: 73-year-old female breast cancer with bony metastases undergoing chemotherapy and last chemotherapy was on Friday. Today started having dizziness and nausea and vomiting. Neurologically she has good motor strength. Normal speech. No obvious signs of stroke. She has impressive bilateral ocular nystagmus. CAT scan and labs are pending. She will be treated with Zofran for nausea and IV fluids. Multiple repeat exams. Patient was given a second dose of IV Zofran. She has some improvement in her symptoms at 10:25 PM. She has continued horizontal nystagmus that has some improvement. There is no other neurological findings. CAT scan is questionable for possible injury due to brain metastases. She is given an MRI for further evaluation. I spoke to the hospitalist he is well-known admit her for further evaluation. Patient family are comfortable with the plan. History & Record Review Discussion w/independent historian: Patient and Family Lab Data Attestation: I reviewed the patient's lab results. Lab results narrative: CBC shows a white count of 4.5. H&H 11.1 and 33.7. Platelets only 61,000. Patient is on chemo. Electrolytes show a gap of 7. Normal BUN 13 creatinine 0.5. Glucose 183. Liver enzymes unremarkable. Labs are consistent with prior. Labs: Laboratory Results - last 24 hr 03/20/24 03/20/24 19:52 21:00 WBC 4.5 RBC 3.40 L Hgb 11.1 L Hct 33.7 L MCV 99.1 H MCH 32.6 H MCHC 32.9 RDW Std Deviation 52.7 H RDW Coeff of Didi 14.4 Plt Count 61 L MPV 10.6 Neut % (Auto) Not Reportable Absolute Neuts (auto) 3.4 Absolute Lymphs (auto) 0.45 L Total Counted 100 Neutrophils % (Manual) 76 H Band Neutrophils % 1 Lymphocytes % (Manual) 10 L Monocytes % (Manual) 5 Metamyelocytes % 1 Myelocytes % 7 H Differential Comment SEE COMMENT Diff Path Review May foll Platelet Estimate MOD DEC RBC Morphology N CHROM Anisocytosis RARE Macrocytosis RARE Ovalocytes RARE Sodium 137 Potassium 3.6 Chloride 107 Carbon Dioxide 23.0 Anion Gap 7 BUN 13 Creatinine 0.59 Estim Creat Clear Calc 63.88 Est GFR (MDRD) Af Amer 127 Est GFR (MDRD) Non-Af 105 BUN/Creatinine Ratio 21.9 H Glucose 183 H Calcium 8.8 Total Bilirubin 0.90 AST 66 H ALT 56 Alkaline Phosphatase 109 Total Protein 6.9 Albumin 3.1 L Globulin 3.8 Albumin/Globulin Ratio 0.8 L Urine Color Yellow Urine Clarity Sl. Cloudy Urine pH 7.0 Ur Specific [place] 1.010 Urine Protein Negative Urine Glucose (UA) 100 H Urine Ketones 50 H Urine Occult Blood Negative Urine Nitrite Negative Urine Bilirubin Negative Urine Urobilinogen Normal Ur Leukocyte Esterase Negative Urine RBC 0 SEEN Urine WBC 0 SEEN Ur Squamous Epith Cells 0 SEEN Urine Bacteria 0 SEEN Urine Mucus 0 SEEN Radiography Chest X-Ray - ED: 1 View, Read by ED Physician, Normal, Heart, Lungs, Mediastinum, Bony Structures, No Acute Disease and Chronic Changes Diagnostic Testing: Clinical Impression(s) from Imaging Studies Brain CT 03/20/24 19:47 IMPRESSION: Chronic involutional changes of the brain. Suspect 1 cm metastasis of the superior right temporal lobe near the sylvian fissure and correlation with MRI with contrast may be useful. Electronically Signed: Hilton Marie MD at 21:04 EDT Reading Location ID and State: [id number] / [email or web address] Tel , Service support , Chest X-Ray 03/20/24 20:20 IMPRESSION: Poor inspiration with some bibasilar atelectasis. Electronically Signed: Hilton Marie MD at 20:57 EDT Reading Location ID and State: [id number] / [email or web address] Tel , Service support , Chest x-ray, portable, single view, interpreted by myself shows no acute abnormality. Chronic changes. Normal cardiac silhouette. Left-sided Mediport. No infiltrate. No effusions. Discharge Plan Triage Chief Complaint: Nausea/Vomiting Other Complaint: Shortness of Breath ED Provider: Sanjay Adam Dx/Rx/DC Orders Clinical Impression: History of deep vein thrombosis, Dizziness, Chronic anticoagulation, Nystagmus, Vomiting, Breast cancer metastasized to bone Prescriptions: No Action levothyroxine 75 mcg tablet 125 mcg PO DAILY 90 Days Patient Comments: calcium citrate 200 mg (950 mg) tablet 500 mg PO DAILY ondansetron HCl 4 mg tablet 4 mg PO DAILY PRN (Reason: nause) Patient Comments: TAKE 2 TABLETS BY MOUTH EVERY 8 HOURS NEEDED. FOR NAUSEA pyridoxine (vitamin B6) 25 mg tablet 25 mg PO DAILY potassium chloride 40 mEq/15 mL liquid 20 meq PO TID cholecalciferol (vitamin D3) [Vitamin D3] 50 mcg (2,000 unit) Capsule 50 mcg PO DAILY Rx Instructions: ON FRIDAY loperamide [Imodium A-D] 2 mg Capsule 2 mg PO Q4H PRN (Reason: Diarrhea) Eliquis 5 mg tablet 2.5 mg PO BID Primary Care Provider: Jamin Foss Referrals: Jamin Foss DO [Primary Care Provider] - Disposition Disposition: Acute Care Hospital [facility]
[2024-03-20] MEDS: 0.9% Normal Saline (1000mL) 1,000 ML 1000 ML IV (19:58)
[2024-03-20 20:04] LABS: Hematocrit 33.7 % (37-47); Hemoglobin 11.1 g/dL (12.0-15.0); Mean Corp Hgb Conc 32.9 g/dL (32-36); Mean Corpuscular Hgb 32.6 pg (27.0-32.0); Mean Corpuscular Volume 99.1 fL (81-99); Mean Platelet Vol. 10.6 fl (6.2-12.0); POSITIVE COUNT YES; POSITIVE DIFFERENTIAL YES; POSITIVE MORPHOLOGY YES; Platelet Count 61 K/mm3 (150-450); RBC Distribution Width CV 14.4 % (11.6-14.6); RBC Distribution Width SD 52.7 fl (35.1-43.9); White Blood Count 4.5 K/mm3 (4.4-11.0)
[2024-03-20 20:07] LABS: Differential Indicated MANUAL DIFF
[2024-03-20 20:18] LABS: ALB/GLOB Ratio 0.8 RATIO (0.9-2.4); AST(SGOT) 66 U/L (15-37); Alanine Aminotransfer ALT/SGPT 56 U/L (13-56); Albumin, Serum 3.1 g/dL (3.2-5.0); Alkaline Phosphatase 109 U/L (45-117); Anion Gap 7 (5-15); BUN 13 mg/dL (7-18); BUN/Creat Ratio 21.9 RATIO (10-20); Calcium,Total 8.8 mg/dL (8.5-10.1); Chloride 107 mmol/L (98-107); Creatinine, Serum 0.59 mg/dL (0.55-1.02); EST Glomerular Filtration Rate 105 mL/min (>60); Est Glom Filt Rate - Afr Amer 127 mL/min (>60); Estimated Creatinine Clearance 63.88 ml/min; Globulin 3.8 g/dL (2.2-4.2); Glucose 183 mg/dL (74-106); Potassium 3.6 mmol/L (3.5-5.1); Protein, Total 6.9 g/dL (6.4-8.2); Sodium Level 137 mmol/L (136-145)
--- NOTE | 2024-03-20 20:20 | RAD_ITS ---
STUDY: X-RAY CHEST REASON FOR EXAM: Female, 73 years old. fever on chemo TECHNIQUE: Single AP portable view of the chest. COMPARISON: None. FINDINGS: Left internal jugular chest port. Status post right axillary lymph node dissection. Poor inspiration with some bibasilar atelectasis. There is no demonstrated pleural abnormality. Normal size heart. Normal mediastinum and alysa. Normal visualized pulmonary arteries. Normal visualized aortic arch and descending thoracic aorta. Normal visualized thoracic spine. Multiple healed bilateral rib fractures. There is no demonstrated abnormality of the visualized soft tissue structures of the upper abdomen. RAD/Chest 1 View (Portable) IMPRESSION: Poor inspiration with some bibasilar atelectasis. Electronically Signed: Hilton Marie MD at 20:57 EDT ,
[2024-03-20 20:30] LABS: Lymphocyte 10 % (19-41); Metamyelocyte 1 % (0-1); Monocyte 5 % (0-10); Myelocyte 7 % (0-0); Neutrophil-Band 1 % (0-5); Neutrophil-Segmented 76 % (47-70); Total Cells Counted 100 (MANUAL DIFF)
[2024-03-20 20:33] LABS: Absolute Lymphocyte Count 0.45 X10^3/uL (0.83-4.51); Absolute Neutrophil Count 3.4 X10^3/uL (2.0-7.7)
[2024-03-20 20:34] LABS: Anisocytosis RARE; Macrocytosis RARE; Ovalocyte RARE; Platelet Estimate MOD DEC (ADEQ); Red Cell Morphology N CHROM NORMAL (NORM C&C)
[2024-03-20 21:08] VITALS: BP 165/91; PULSE 86; RESP 22; TEMP 36.6; O2SAT 94
[2024-03-20] MEDS: Ondansetron 4 MG/2 ML Vial IV (21:15)
[2024-03-20 21:18] LABS: Bacteria 0 SEEN /hpf (None Seen); Mucous, Urine 0 SEEN /hpf (<or=2+); Red Blood Cells-Urine 0 SEEN /hpf (0-5); Squamous Epithelial Cells - UA 0 SEEN /hpf (5-10); White Blood Cells 0 SEEN /hpf (0-5)
[2024-03-20 21:37] LABS: Color, Urine Yellow (Yellow); Glucose, Dipstick 100 mg/dl (Normal); Ketone-Dipstick 50 mg/dl (Negative); Leukocyte Esterase-Dipstick Negative /ul (Negative); Nitrite-Dipstick Negative (Negative); Occult Blood-Urine Negative /ul (Negative); Protein-Dipstick Negative (Negative); Urine Bilirubin Dipstick Negative (Negative); Urine Clarity Sl. Cloudy (Clear); Urine Urobilinogen Normal (Normal)
--- NOTE | 2024-03-20 22:20 | HP.PCM.HOS_ITS ---
[facility] - General General Date of Admission: 03/20/24 Date of Service: 03/20/24 Chief Complaint: Dizziness with Nausea and Vomiting. HPI Narrative MO OLIVARES, is a 73 F with a past medical history of essential hypertension, hyperlipidemia, hypothyroidism, overweight; with BMI of 29.7 this admission, history of DVTs; on Eliquis, history of BPPV, osteoarthritis; with chronic back pain, history of colonic diverticulosis, IBS, history of TMJ syndrome, osteoporosis and a known history of metastatic breast cancer; s/p partial mastectomy of the right breast still undergoing chemotherapy after 3 years with last chemotherapy treatment on Friday, March 15, 2024 who presents to [facility] ER complaining of dizziness with nausea and vomiting. Ms. Olivares reports her symptoms began earlier today with the abrupt onset of dizziness which she describes as lightheadedness and being off balance. She then developed intractable nausea and vomiting with several episodes of bilious emesis. She also states she had a fever to 101 ?F last night but she had attributed this as a side effect of her chemotherapy. She denies any weakness to her upper or lower extremities, slurred speech or headache but the ER physician noted severe persistent horizontal nystagmus. In the ER she was diagnosed with acute vertigo complicated by intractable nausea and vomiting with a CT scan of the head that revealed a suspicious ~1 cm likely metastatic lesion of the superior right temporal lobe near the sylvian fissure with MRI with contrast recommended for correlation compounded by laboratory evidence of moderate thrombocytopenia of 61 K present on admission; likely due to adverse drug chemotherapy and she was then admitted to the PCU under observation status for stay that is expected to be less than 2 midnights. FORMERLY [facility], 1928–1983 Medical History Acute maxillary sinusitis, unspecified Anxiety Back pain Breast cancer Cancer Chronic pain Diverticulosis Edema Essential (primary) hypertension History of multiple pulmonary nodules History of radiation therapy History of vertigo Hyperlipemia, mixed Hypothyroidism IBS (irritable bowel syndrome) Metastatic breast cancer Nausea & vomiting Non-smoker Osteoporosis Thyroid disease TMJ (temporomandibular joint syndrome) Home Medications levothyroxine 75 mcg tablet 125 mcg PO DAILY 90 days 11/06/17 [History Last Taken 03/20/21 06:30 75 mcg] calcium citrate 200 mg (950 mg) tablet 500 mg PO DAILY 04/05/18 [History Last Taken Unknown] cholecalciferol (vitamin D3) 50 mcg (2,000 unit) capsule (Vitamin D3) 50 mcg PO DAILY 03/12/21 [History Last Taken Unknown] loperamide 2 mg capsule (Imodium A-D) 2 mg PO Q4H PRN Diarrhea 04/23/21 [History Last Taken 04/15/21] apixaban 5 mg tablet (Eliquis) 2.5 mg PO BID 06/28/21 [History Last Taken Unknown] ondansetron HCl 4 mg tablet 4 mg PO DAILY PRN nause 06/28/21 [History Last Taken Unknown] potassium chloride 40 mEq/15 mL oral liquid 20 meq PO TID 03/07/23 [History Last Taken Unknown] pyridoxine (vitamin B6) 25 mg tablet 25 mg PO DAILY 03/07/23 [History Last Taken Unknown] Allergy/AdvReac Type Severity Reaction Status Date / Time lisinopril Allergy Intermediate Itching Verified 01/17/24 08:13 ciprofloxacin [From Cipro] Allergy Unknown Hives Verified 01/17/24 08:13 sulfamethoxazole Allergy Unknown Verified 01/17/24 08:13 [From Bactrim] trimethoprim [From Bactrim] Allergy Unknown Verified 01/17/24 08:13 erythromycin base AdvReac Unknown Jittery Verified 01/17/24 08:13 and itching Sulfa (Sulfonamide AdvReac Unknown Jittery Verified 01/17/24 08:13 Antibiotics) and itching Tetracyclines AdvReac Unknown Jittery Verified 01/17/24 08:13 and itching Family History Father CAD (coronary artery disease) Mother Breast cancer Sister Colon cancer Other Heart disease Liver cancer Surgical History H/O section History of cholecystectomy History of lumpectomy of right breast (06/19/18) History of partial mastectomy of right breast Hx of tubal ligation Hx of umbilical hernia repair Social History Smoking Status: Never smoker alcohol intake: current alcohol intake frequency: holidays/special occasions only Alcohol type: wine substance use type: does not use caffeine: No what type of physical activity do you participate in: aerobics frequency: 1-2 times per week duration: 45-60 minutes/day seatbelt use: always do you feel safe at home: Yes ROS ROS Narrative Review of systems: General: Patient denies fever or chills. HENT: Denies headache, denies stuffy nose, denies sore throat EYES: Denies changes in vision or discharge from eyes. Resp: Denies cough, denies shortness of breath Cardiac: Denies chest pain, palpitations or heart racing. GI: Patient admits to nausea and vomiting with several episodes of bilious emesis as per HPI. : Denies changes in urination Extremity: Denies swelling Musculoskeletal: Feels somewhat generally weak and unwell but denies arthralgias or myalgias. Neuro: Patient admits to severe vertigo that is persistent and unrelenting but denies headache, paresthesias or other focal neurologic deficits. Heme: Denies any bleeding or bruising Skin: Denies rashes Psychiatric: No complaints voiced related to uncontrolled depression or anxiety. Endocrine: No polyuria, polydipsia or polyphagia. The rest of the 14 point ROS was negative except for positives in HPI. Vital Signs Vital Signs Vital Signs: 03/20/24 19:19 03/20/24 19:46 03/20/24 21:08 Temperature 98 F 97.8 F Temperature Source Oral Oral Pulse Rate 82 86 Respiratory Rate 80 H 22 H Respiratory Effort Normal Respiratory Depth Normal Respiratory Pattern Normal Blood Pressure 157/80 H 165/91 H Blood Pressure Mean 105 115 Pulse Ox 93 94 Oxygen Delivery Method Room Air Room Air Room Air Weight Weight: 178 lb 9.191 oz Body Mass Index (BMI) 29.7 Physical Exam Const alert and oriented x3 Constitutional Narrative: Moderate distress noted. General Appearance: cooperative HEENT normocephalic, head/scalp atraumatic and hearing grossly normal bilaterally HEENT Narrative: Mucous membranes dry. Eyes PERRL and EOMs intact bilaterally Eyes Narrative: Patient has severe persistent bilateral horizontal nystagmus. Neck no lymphadenopathy and supple Resp normal respiratory effort, no retractions, no use of accessory muscles and clear to auscultation bilaterally Cardio regular rate and regular rhythm GI normal to inspection, nondistended, normoactive bowel sounds, soft to palpation, non-tender and non-distended Extremity normal to inspection and full ROM Skin Skin Narrative: Patient has no evidence of rash or jaundice. Neuro oriented x3, CN's II-XII intact bilaterally, moves all extremities and no focal motor deficits Sensorium / Orientation: awake, alert, oriented to person, oriented to place and oriented to time Speech: speech normal Psych Mood & Affect: anxious Results Medical Records Data Attestation: I reviewed the patient's medical records Lab / Micro Data Attestation: I reviewed the patient's lab results. 03/20/24 19:52 03/20/24 19:52 Labs: Laboratory Results - last 24 hr 03/20/24 19:52: WBC 4.5, RBC 3.40 L, Hgb 11.1 L, Hct 33.7 L, MCV 99.1 H, MCH 32.6 H, MCHC 32.9, RDW Std Deviation 52.7 H, RDW Coeff of Didi 14.4, Plt Count 61 L, MPV 10.6, Neut % (Auto) Not Reportable, Absolute Neuts (auto) 3.4, Absolute Lymphs (auto) 0.45 L, Total Counted 100, Neutrophils % (Manual) 76 H, Band Neutrophils % 1, Lymphocytes % (Manual) 10 L, Monocytes % (Manual) 5, Metamyelocytes % 1, Myelocytes % 7 H, Differential Comment SEE COMMENT, Diff Path Review March foll, Platelet Estimate MOD DEC, RBC Morphology N CHROM, Anisocytosis RARE, Macrocytosis RARE, Ovalocytes RARE, Sodium 137, Potassium 3.6, Chloride 107, Carbon Dioxide 23.0, Anion Gap 7, BUN 13, Creatinine 0.59, Estim Creat Clear Calc 63.88, Est GFR (MDRD) Af Amer 127, Est GFR (MDRD) Non-Af 105, BUN/Creatinine Ratio 21.9 H, Glucose 183 H, Calcium 8.8, Total Bilirubin 0.90, AST 66 H, ALT 56, Alkaline Phosphatase 109, Total Protein 6.9, Albumin 3.1 L, Globulin 3.8, Albumin/Globulin Ratio 0.8 L 03/20/24 21:00: Urine Color Yellow, Urine Clarity Sl. Cloudy, Urine pH 7.0, Ur Specific [place] 1.010, Urine Protein Negative, Urine Glucose (UA) 100 H, Urine Ketones 50 H, Urine Occult Blood Negative, Urine Nitrite Negative, Urine Bilirubin Negative, Urine Urobilinogen Normal, Ur Leukocyte Esterase Negative, Urine RBC 0 SEEN, Urine WBC 0 SEEN, Ur Squamous Epith Cells 0 SEEN, Urine Bacteria 0 SEEN, Urine Mucus 0 SEEN Imaging Radiology Impression Brain CT 03/20/24 19:47 IMPRESSION: Chronic involutional changes of the brain. Suspect 1 cm metastasis of the superior right temporal lobe near the sylvian fissure and correlation with MRI with contrast may be useful. Electronically Signed: Hilton Marie MD at 21:04 EDT Reading Location ID and State: [id number] / [employer] , Service support , Chest X-Ray 03/20/24 20:20 IMPRESSION: Poor inspiration with some bibasilar atelectasis. Electronically Signed: Hilton Marie MD at 20:57 EDT Reading Location ID and State: [id number] / [employer] Tel , Service support , Assessment & Plan Assessment/Plan (1) Vertigo: (2) Nystagmus: (3) Intractable nausea and vomiting: (4) Breast cancer metastasized to bone: QUALIFIERS: Laterality: right Qualified Code(s): C50.911 - Malignant neoplasm of unspecified site of right female breast; C79.51 - Secondary malignant neoplasm of bone (5) Mass of temporoparietal region of brain: (6) Thrombocytopenia: (7) Adverse drug reaction: QUALIFIERS: Encounter type: initial encounter Qualified Code(s): T50.905A - Adverse effect of unspecified drugs, medicaments and biological substances, initial encounter PLAN: Plan 1. Severe persistent vertigo in the setting of known BPPV - Admit to PCU under observation status. Continue supportive care initiated in ER plus place scopolamine patch 1.5 mg topical every 72 hours. Give Antivert 25 mg p.o. every 8 hours as needed for breakthrough vertigo. 2. Intractable nausea and vomiting with bilious emesis due to #1 - Keep n.p.o. and aggressively volume resuscitate. Give IV Zofran as needed nausea vomiting. Give IM Phenergan as needed for breakthrough nausea vomiting. 3. Known history of metastatic breast cancer; on chemotherapy with a suspicious ~1 cm likely metastatic lesion of the superior right temporal lobe near the sylvian fissure with MRI with contrast recommended for correlation - MRI ordered as per radiologist recommendations. Patient is aware of potential mass. 4. Thrombocytopenia of 61 present on admission (down from her baseline of 101 last month); likely due to adverse drug reaction to chemotherapy - Noted. Check daily level to ensure continued stability. Avoid blood thinners, heparin or heparinoid's until platelet count recovers. 5. Essential hypertension - Continue home regimen plus give as needed IV hydralazine for systolic blood pressure greater than 160 mmHg. 6. Hyperlipidemia - Resume statin. 7. Hypothyroidism - Continue Synthroid as previous. 8. Overweight; with BMI of 29.7 this admission - Weight loss will be recommended. 9. History of DVTs; on Eliquis - Hold Eliquis due to lymphocytopenia 61 present on admission. 10. Osteoarthritis; with chronic back pain - Give Tylenol as needed. 11. History of colonic diverticulosis - Noted. 12. IBS - Stable. 13. History of TMJ syndrome - Noted. 14. Osteoporosis - Noted. 15. DVT prophylaxis - We we will hold Eliquis due to thrombocytopenia of [address] SCDs only at this time and check daily platelet count. Total time: Approximately 75 minutes. Charges/Coding Visit Charges OBSV E&M: 52703 Observ/hosp same date L2
[2024-03-20 22:31] VITALS: BP 167/83; PULSE 87; RESP 18; TEMP 36.7; O2SAT 94
[2024-03-20 23:11] VITALS: BMI 29.2
[2024-03-20 23:20] VITALS: BP 168/92; PULSE 85; RESP 18; TEMP 36.4; O2SAT 97
[2024-03-21] MEDS: 0.9% Normal Saline (1000mL) 1,000 ML 70 ML IV ×2 (00:05→15:05)
[2024-03-21] MEDS: Scopolamine 1mg/72hr Patch 1 PATCH TD (00:32)
[2024-03-21 03:29] VITALS: BP 122/68; PULSE 89; RESP 18; TEMP 36.1; O2SAT 97
[2024-03-21] MEDS: Levothyroxine 125 MCG Tablet PO (05:22)
[2024-03-21] MEDS: Potassium Chloride Oral Soln 20 MEQ/15 ML UDC PO ×3 (05:24→21:23)
[2024-03-21 05:37] LABS: Hematocrit 31.1 % (37-47); Mean Corp Hgb Conc 32.2 g/dL (32-36); Mean Corpuscular Hgb 31.8 pg (27.0-32.0); POSITIVE COUNT YES; POSITIVE DIFFERENTIAL YES; POSITIVE MORPHOLOGY YES; Platelet Count 51 K/mm3 (150-450); RBC Distribution Width CV 14.2 % (11.6-14.6); RBC Distribution Width SD 51.8 fl (35.1-43.9); Red Blood Count 3.14 M/mm3 (4.2-5.4); White Blood Count 3.4 K/mm3 (4.4-11.0)
[2024-03-21 06:00] VITALS: BMI 33.3
[2024-03-21 06:11] LABS: ALB/GLOB Ratio 0.8 RATIO (0.9-2.4); AST(SGOT) 55 U/L (15-37); Alanine Aminotransfer ALT/SGPT 51 U/L (13-56); Albumin, Serum 2.7 g/dL (3.2-5.0); Alkaline Phosphatase 100 U/L (45-117); Anion Gap 7 (5-15); BUN 9 mg/dL (7-18); BUN/Creat Ratio 22.2 RATIO (10-20); Calcium,Total 8.2 mg/dL (8.5-10.1); Chloride 109 mmol/L (98-107); EST Glomerular Filtration Rate 163 mL/min (>60); Est Glom Filt Rate - Afr Amer 197 mL/min (>60); Estimated Creatinine Clearance 63.46 ml/min; Globulin 3.6 g/dL (2.2-4.2); Glucose 124 mg/dL (74-106); Phosphorus 3.2 mg/dL (2.5-4.9); Potassium 3.8 mmol/L (3.5-5.1); Protein, Total 6.3 g/dL (6.4-8.2); Sodium Level 137 mmol/L (136-145); Thyroid Stim Hormone (TSH) 0.24 uIU/mL (0.358-3.74)
[2024-03-21 06:22] LABS: Differential Indicated MANUAL DIFF
[2024-03-21 08:22] VITALS: BP 140/65; PULSE 88; RESP 16; TEMP 36.6; O2SAT 97
[2024-03-21 08:39] VITALS: O2SAT 98
[2024-03-21 08:52] LABS: Blast 1 % (0-0); Lymphocyte 10 % (19-41); Metamyelocyte 7 % (0-1); Monocyte 4 % (0-10); Myelocyte 2 % (0-0); Neutrophil-Segmented 76 % (47-70); Total Cells Counted 100 (MANUAL DIFF)
[2024-03-21 08:53] LABS: Absolute Neutrophil Count 2.6 X10^3/uL (2.0-7.7); Platelet Estimate MOD DEC (ADEQ); Red Cell Morphology NORM C+C NORMAL (NORM C&C)
[2024-03-21 08:54] LABS: Absolute Lymphocyte Count 0.34 X10^3/uL (0.83-4.51); Lymphocyte # 0.34 X10^3/ul (0.83-4.51)
[2024-03-21] MEDS: Calcium Carbonate 500 MG Tablet PO (09:47)
[2024-03-21] MEDS: Cholecalciferol (VIT D3) 25 MCG TABLET (1,000 UNITS) 50 MCG PO (09:48)
[2024-03-21] MEDS: Pyridoxine HCl 50 MG Tablet 25 MG PO (09:48)
--- NOTE | 2024-03-21 11:31 | MRI_ITS ---
EXAM: MR HEAD WITHOUT AND WITH INTRAVENOUS CONTRAST CLINICAL INDICATION: Suspected metastatic disease on CT TECHNIQUE: Multiplanar and multisequence MR images of the brain were obtained without and with intravenous contrast. CONTRAST: IV 18cc clariscan COMPARISON: CT head, 03/20/2024 FINDINGS: BRAIN AND EXTRA-AXIAL SPACES: There is no restricted diffusion in the brain parenchyma to indicate recent infarct or other pathology. There is no pathologic intracranial enhancement. No meningeal thickening or enhancement is present. No discrete mass or mass effect. No shift of the midline structures. Minimal periventricular and scattered subcortical T2 and T2 FLAIR hyperintense signal is nonspecific although most commonly due to chronic microvascular ischemic changes in a patient of this age. Small chronic lacunar type infarcts in the left thornton radiata. No pathologic mineralization or acute intracranial hemorrhage. No pathologic extra-axial fluid collection. No hydrocephalus. The basal cisterns are patent. Posterior fossa structures are unremarkable. SELLA: No significant abnormality. Normal sella turcica, pituitary gland, infundibular stalk, optic chiasm and hypothalamus. AUDITORY SYSTEM: No significant abnormality. The internal auditory canals are patent. BONES/JOINTS: No significant abnormality. No discrete lytic or blastic abnormalities. SINUSES: Normal as visualized. Clear. MASTOID AIR CELLS: Normal as visualized. Clear. ORBITS: Normal as visualized. Both globes, extraocular muscles, optic nerves and retrobulbar fat appear unremarkable. VASCULATURE: Normal as visualized. Normal flow voids in the major intracranial circulation. MRI/Brain W/WO Contrast IMPRESSION: No evidence of metastatic disease or other acute intracranial pathology. The finding on prior CTs artifactual secondary to volume averaging of the sylvian fissure. Electronically Signed: Dustin Agosto DO at 14:08 EDT ,
[2024-03-21 14:12] VITALS: BP 156/70; PULSE 83; RESP 18; TEMP 36.3; O2SAT 98
--- NOTE | 2024-03-21 15:28 | PCM.PN.HOSP ---
Subjective Subjective Doing well, no issues overnight. Feels little bit better with the addition of scopolamine patch from her nausea. Objective Data Objective Data Vital Signs: Vital Signs Temp Pulse Resp BP Pulse Ox O2 Del Method 97.4 F L 83 18 156/70 H 98 Room Air 03/21/24 14:12 03/21/24 14:12 03/21/24 14:12 03/21/24 14:12 03/21/24 14:12 03/21/24 14:12 Oxygen Delivery Method Room Air Weight: 200 lb 9.93 oz Body Mass Index (BMI) 33.3 Intake & Output: Intake and Output for Last 24 Hours 03/20/24 03/21/24 03/22/24 03:59 03:59 03:59 Intake Total 1000 / 1000 1000 / 1000 Balance 1000 / 1000 1000 / 1000 Lab / Micro Data 03/21/24 04:40 03/21/24 04:40 Labs: Laboratory Results - last 24 hr 03/20/24 19:52: WBC 4.5, RBC 3.40 L, Hgb 11.1 L, Hct 33.7 L, MCV 99.1 H, MCH 32.6 H, MCHC 32.9, RDW Std Deviation 52.7 H, RDW Coeff of Didi 14.4, Plt Count 61 L, MPV 10.6, Neut % (Auto) Not Reportable, Absolute Neuts (auto) 3.4, Absolute Lymphs (auto) 0.45 L, Total Counted 100, Neutrophils % (Manual) 76 H, Band Neutrophils % 1, Lymphocytes % (Manual) 10 L, Monocytes % (Manual) 5, Metamyelocytes % 1, Myelocytes % 7 H, Differential Comment SEE COMMENT, Diff Path Review May foll, Platelet Estimate MOD DEC, RBC Morphology N CHROM, Anisocytosis RARE, Macrocytosis RARE, Ovalocytes RARE, Sodium 137, Potassium 3.6, Chloride 107, Carbon Dioxide 23.0, Anion Gap 7, BUN 13, Creatinine 0.59, Estim Creat Clear Calc 63.88, Est GFR (MDRD) Af Amer 127, Est GFR (MDRD) Non-Af 105, BUN/Creatinine Ratio 21.9 H, Glucose 183 H, Calcium 8.8, Total Bilirubin 0.90, AST 66 H, ALT 56, Alkaline Phosphatase 109, Total Protein 6.9, Albumin 3.1 L, Globulin 3.8, Albumin/Globulin Ratio 0.8 L 03/20/24 21:00: Urine Color Yellow, Urine Clarity Sl. Cloudy, Urine pH 7.0, Ur Specific [place] 1.010, Urine Protein Negative, Urine Glucose (UA) 100 H, Urine Ketones 50 H, Urine Occult Blood Negative, Urine Nitrite Negative, Urine Bilirubin Negative, Urine Urobilinogen Normal, Ur Leukocyte Esterase Negative, Urine RBC 0 SEEN, Urine WBC 0 SEEN, Ur Squamous Epith Cells 0 SEEN, Urine Bacteria 0 SEEN, Urine Mucus 0 SEEN 03/21/24 04:40: WBC 3.4 L, RBC 3.14 L, Hgb 10.0 L, Hct 31.1 L, MCV 99.0, MCH 31.8, MCHC 32.2, RDW Std Deviation 51.8 H, RDW Coeff of Didi 14.2, Plt Count 51 L, MPV 10.0, Neut % (Auto) Not Reportable, Absolute Neuts (auto) 2.6, Absolute Lymphs (auto) 0.34 L, Total Counted 100, Neutrophils % (Manual) 76 H, Lymphocytes % (Manual) 10 L, Monocytes % (Manual) 4, Metamyelocytes % 7 H, Myelocytes % 2 H, Blast Cells % 1 H*, Diff Path Review May , Platelet Estimate MOD DEC, RBC Morphology NORM C+C, Sodium 137, Potassium 3.8, Chloride 109 H, Carbon Dioxide 21.0, Anion Gap 7, BUN 9, Creatinine 0.40 L, Estim Creat Clear Calc 63.46, Est GFR (MDRD) Af Amer 197, Est GFR (MDRD) Non-Af 163, BUN/Creatinine Ratio 22.2 H, Glucose 124 H, Calcium 8.2 L, Phosphorus 3.2, Magnesium 2.0, Total Bilirubin 0.70, AST 55 H, ALT 51, Alkaline Phosphatase 100, Total Protein 6.3 L, Albumin 2.7 L, Globulin 3.6, Albumin/Globulin Ratio 0.8 L, TSH 0.24 L Radiography Diagnostic Testing: Radiology Impression Brain CT 03/20/24 19:47 IMPRESSION: Chronic involutional changes of the brain. Suspect 1 cm metastasis of the superior right temporal lobe near the sylvian fissure and correlation with MRI with contrast may be useful. Electronically Signed: Hilton Marie MD at 21:04 EDT , Chest X-Ray 03/20/24 20:20 IMPRESSION: Poor inspiration with some bibasilar atelectasis. Electronically Signed: Hilton Marie MD at 20:57 EDT , Brain MRI 03/21/24 11:31 IMPRESSION: No evidence of metastatic disease or other acute intracranial pathology. The finding on prior CTs artifactual secondary to volume averaging of the sylvian fissure. Electronically Signed: Dustin Agosto DO at 14:08 EDT , Physical Exam Narrative General: Alert, Oriented x3, Cooperative, No apparent distress HEENT: Atraumatic, PERRLA, EOMI, Normocephalic Oral: Moist Mucosa Neck: Supple, No JVD Lungs: Diminished, Normal air movement, No rhonchi, No wheeze, No rales Cardiovascular: Regular rate, Regular Rhythm, Normal S1, Normal S2, No murmurs Abdomen: Soft, Non Tender, Non-Distended, No Hepato-splenomegaly Extremities: No edema, Capillary Refill Less than 3 Seconds Skin: No rashes, No breakdown Musculoskeletal: No Tenderness to Palpation of Joints or Extremities Neurological: No focal neurological deficits, Motor Exam 5/5 strength throughout, Sensory exam intact to light touch and pain Psych/Mental Status: Flat Assessment & Plan Assessment/Plan (1) Vertigo: (2) Nystagmus: (3) Intractable nausea and vomiting: (4) Breast cancer metastasized to bone: QUALIFIERS: Laterality: right Qualified Code(s): C50.911 - Malignant neoplasm of unspecified site of right female breast; C79.51 - Secondary malignant neoplasm of bone (5) Mass of temporoparietal region of brain: (6) Thrombocytopenia: (7) Adverse drug reaction: QUALIFIERS: Encounter type: initial encounter Qualified Code(s): T50.905A - Adverse effect of unspecified drugs, medicaments and biological substances, initial encounter PLAN: Plan 1. Persistent vertigo with intractable nausea and vomiting ? Continue with supportive care and IV fluids ? She says that the scopolamine patch helped significantly ? Can try to give her a little bit of a diet now that her dizziness has abated ? MRI is pending and due to both her vertigo as well as findings on CT scan of the head that was concerning for possible metastatic disease 2. History of metastatic breast cancer with chronic thrombocytopenia with history of DVT ? Back in January she had a platelet count of about 100 and then on admission and dropped to 61 and now is 51,000 ? She also has myelocytes as well as metamyelocytes and blast cells on CBC this morning ? Her Eliquis has been held and she is currently on SCDs will continue to monitor and repeat CBC in the morning 3. Essential HTN/HLD ? Blood pressures are stable ? Can resume her home medications ? We will monitor make adjustments as necessary ? Continue statin 4. Hypothyroidism ? Stable ? Continue with Synthroid DVT: SCDs Charges/Coding Visit Charges Inpatient E&M: 19690 Subs Hosp L2
[2024-03-21 18:44] VITALS: BP 148/80; PULSE 75; RESP 16; TEMP 36.3; O2SAT 97
[2024-03-21 21:30] VITALS: BP 142/66; PULSE 91; RESP 18; TEMP 36.7; O2SAT 97
[2024-03-22 03:49] VITALS: BP 144/66; PULSE 83; RESP 18; TEMP 36.5; O2SAT 96
[2024-03-22] MEDS: 0.9% Normal Saline (1000mL) 1,000 ML 70 ML IV (05:10)
[2024-03-22] MEDS: Levothyroxine 125 MCG Tablet PO (05:11)
[2024-03-22] MEDS: Potassium Chloride Oral Soln 20 MEQ/15 ML UDC PO (05:11)
[2024-03-22 05:43] LABS: Hematocrit 31.7 % (37-47); Mean Corp Hgb Conc 31.5 g/dL (32-36); Mean Corpuscular Hgb 31.8 pg (27.0-32.0); Mean Platelet Vol. 10.4 fl (6.2-12.0); POSITIVE COUNT YES; POSITIVE MORPHOLOGY YES; Platelet Count 51 K/mm3 (150-450); RBC Distribution Width CV 14.6 % (11.6-14.6); RBC Distribution Width SD 53.7 fl (35.1-43.9); Red Blood Count 3.14 M/mm3 (4.2-5.4); White Blood Count 3.2 K/mm3 (4.4-11.0)
[2024-03-22 06:00] VITALS: BMI 29.9
[2024-03-22 06:12] LABS: Anion Gap 7 (5-15); BUN 9 mg/dL (7-18); BUN/Creat Ratio 17.4 RATIO (10-20); Calcium,Total 8.5 mg/dL (8.5-10.1); Chloride 113 mmol/L (98-107); Creatinine, Serum 0.52 mg/dL (0.55-1.02); EST Glomerular Filtration Rate 123 mL/min (>60); Est Glom Filt Rate - Afr Amer 149 mL/min (>60); Estimated Creatinine Clearance 67.72 ml/min; Glucose 103 mg/dL (74-106); Potassium 4.4 mmol/L (3.5-5.1); Sodium Level 142 mmol/L (136-145)
[2024-03-22 06:59] LABS: Differential Indicated MANUAL DIFF
[2024-03-22 08:31] VITALS: BP 151/82; PULSE 87; RESP 12; TEMP 36.5; O2SAT 95
[2024-03-22] MEDS: Calcium Carbonate 500 MG Tablet PO (08:35)
[2024-03-22] MEDS: Cholecalciferol (VIT D3) 25 MCG TABLET (1,000 UNITS) 50 MCG PO (08:35)
[2024-03-22] MEDS: Pyridoxine HCl 50 MG Tablet 25 MG PO (08:36)
--- NOTE | 2024-03-22 10:06 | CASEMGMT ---
Met with?patient and her to complete GRANT form. GRANT form explained to both who voiced understanding and signed form. Original form placed in pt?s chart and copy provided to?patient. Emily Greenberg, Discharge Planning Asst
[2024-03-22 10:33] LABS: Eosinophil 1 % (0-5); Lymphocyte 26 % (19-41); Monocyte 11 % (0-10); Myelocyte 2 % (0-0); Neutrophil-Band 1 % (0-5); Neutrophil-Segmented 59 % (47-70); Total Cells Counted 100 (MANUAL DIFF)
[2024-03-22 10:35] LABS: Anisocytosis 1+; Platelet Estimate ADEQUATE (ADEQ)
[2024-03-22 10:36] LABS: Red Cell Morphology N CHROM NORMAL (NORM C&C)
[2024-03-22 10:37] LABS: Absolute Lymphocyte Count 0.83 X10^3/uL (0.83-4.51); Absolute Neutrophil Count 1.9 X10^3/uL (2.0-7.7); Lymphocyte # 0.83 X10^3/ul (0.83-4.51); Neutrophil # 1.93 X10^3/uL (2.7-7.7)
--- NOTE | 2024-03-22 14:00 | DCINST_ITS ---
Discharge Instructions Diet Discharge Diet: No restrictions Activity Discharge Activity: Return to Normal Activity Weight Bearing Status: Full weight bearing Follow Up Care Test Results: Test results from this visit will be discussed in further detail at your follow- up appointment, if applicable. Discharge Plan Admission Admit Date/Time: 03/20/24 22:33 Primary Reason for Your Visit: vertigo Attending Provider: Jamin Ansari Primary Care Provider: Jamin Foss Consulting Providers: Nolan Eddy; Robbie Andrew Discharge Orders/Prescriptions Prescriptions: Continued levothyroxine 75 mcg tablet 125 mcg PO DAILY 90 Days Patient Comments: calcium citrate 200 mg (950 mg) tablet 500 mg PO DAILY ondansetron HCl 4 mg tablet 4 mg PO DAILY PRN (Reason: nause) Patient Comments: TAKE 2 TABLETS BY MOUTH EVERY 8 HOURS NEEDED. FOR NAUSEA pyridoxine (vitamin B6) 25 mg tablet 25 mg PO DAILY potassium chloride 40 mEq/15 mL liquid 20 meq PO TID cholecalciferol (vitamin D3) [Vitamin D3] 50 mcg (2,000 unit) Capsule 50 mcg PO DAILY Rx Instructions: ON FRIDAY loperamide [Imodium A-D] 2 mg Capsule 2 mg PO Q4H PRN (Reason: Diarrhea) Eliquis 5 mg tablet 2.5 mg PO BID Referrals / Follow Up: Jamin Foss DO [Primary Care Provider] - Alex Moody DO [Med Staff - Active Staff] - See Referral Note (as directed) Disposition Disposition (needs filled in before D/C Order can be placed): Home, Self Care
--- NOTE | 2024-03-22 14:05 | DS.PCM_ITS ---
Providers Date of Admission: 03/20/24 Date of Discharge: 03/22/24 Primary Care Physician: Dr. Jamin Foss DO Reason For Visit: ACUTE VERTIGO WITH INTRACTABLE N/V WITH SUSPECTED Diagnosis Discharge Diagnosis (1) Vertigo: Status: Acute Code(s): R42 - Dizziness and giddiness (2) Nystagmus: Status: Acute Code(s): H55.00 - Unspecified nystagmus (3) Intractable nausea and vomiting: Status: Acute Code(s): R11.2 - Nausea with vomiting, unspecified (4) Breast cancer metastasized to bone: Status: Acute Code(s): C50.919 - Malignant neoplasm of unspecified site of unspecified female breast; C79.51 - Secondary malignant neoplasm of bone Qualifiers: Laterality: right Qualified Code(s): C50.911 - Malignant neoplasm of unspecified site of right female breast; C79.51 - Secondary malignant neoplasm of bone (5) Mass of temporoparietal region of brain: Status: Acute Code(s): G93.89 - Other specified disorders of brain (6) Thrombocytopenia: Status: Acute Code(s): D69.6 - Thrombocytopenia, unspecified (7) Adverse drug reaction: Status: Acute Code(s): T50.905A - Adverse effect of unspecified drugs, medicaments and biological substances, initial encounter Qualifiers: Encounter type: initial encounter Qualified Code(s): T50.905A - Adverse effect of unspecified drugs, medicaments and biological substances, initial encounter Plan Final diagnosis #1 acute vertigo #2 intractable nausea and vomiting secondary to #1 #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 #4 essential hypertension Medications at Discharge Home Medications levothyroxine 75 mcg tablet 125 mcg PO DAILY 90 days 11/06/17 calcium citrate 200 mg (950 mg) tablet 500 mg PO DAILY 04/05/18 cholecalciferol (vitamin D3) 50 mcg (2,000 unit) capsule (Vitamin D3) 50 mcg PO DAILY 03/12/21 loperamide 2 mg capsule (Imodium A-D) 2 mg PO Q4H PRN Diarrhea 04/23/21 apixaban 5 mg tablet (Eliquis) 2.5 mg PO BID 06/28/21 ondansetron HCl 4 mg tablet 4 mg PO DAILY PRN nause 06/28/21 potassium chloride 40 mEq/15 mL oral liquid 20 meq PO TID 03/07/23 pyridoxine (vitamin B6) 25 mg tablet 25 mg PO DAILY 03/07/23 Hospital Course Operations None Procedures None Summary of Care Provided Minutes Spent on Discharge: 31 Hospital Course: 73-year-old white female was seen in the emergency room at [facility] with complaints of dizziness and lightheadedness. In addition she had several episodes of nausea and vomiting. Workup in the emergency room included a CT of the brain which showed chronic involutional changes and a suspicious area that was felt to be a possible metastases in the superior right temporal lobe near the sylvian fissure, labs showed a thrombocytopenia with a 61,000 platelet count, chemistry profile was unremarkable except for blood sugar of 183. Patient was placed in observation status on PCU, she underwent an MRI to further clarify whether she had an actual brain metastases-this MRI did not show the metastasis. Patient was placed on scopolamine patch which helped her vertiginous symptoms, she was given antiemetics as needed and IV fluids. Patient was seen by PT and OT. On 03/22/2024, patient was seen and examined: On examination she appeared in good health and spirits, she does not appear to be in any distress. Vital signs as documented. Skin warm and dry and without overt rashes. Neck without JVD, thyroid appears normal, trachea is midline, neck is supple. Lungs clear, normal air movement was noted. Heart exam notable for regular rhythm, normal sounds and absence of murmurs, rubs or gallops. Abdomen unremarkable and without evidence of organomegaly, masses, or abdominal aortic enlargement, bowel sounds are present in all 4 quadrants, no abdominal tenderness was noted. Extremities nonedematous, no cyanosis was noted, no clubbing was noted. Neuro: Cranial nerves II through XII are grossly intact, no focal motor deficits were noted, sensation to light touch and pinprick is intact, motor exam 5/5 throughout. Psych: Patient is alert and oriented x3, she does not appear anxious or depressed, she does not appear agitated. Patient appears stable for discharge home on 03/22/2024, I talked briefly with her oncologist by phone prior to discharging her home. Weight / BMI Weight Weight: 81.5 kg Body Mass Index (BMI) 29.9 ABG / Lab / Microbiology Data 03/22/24 04:35 03/22/24 04:35 Laboratory: Laboratory Results - last 24 hr 03/22/24 04:35: WBC 3.2 L, RBC 3.14 L, Hgb 10.0 L, Hct 31.7 L, MCV 101.0 H, MCH 31.8, MCHC 31.5 L, RDW Std Deviation 53.7 H, RDW Coeff of Didi 14.6, Plt Count 51 L, MPV 10.4, Neut % (Auto) Not Reportable, Absolute Neuts (auto) 1.9 L, Absolute Lymphs (auto) 0.83, Total Counted 100, Neutrophils % (Manual) 59, Band Neutrophils % 1, Lymphocytes % (Manual) 26, Monocytes % (Manual) 11 H, Eosinophils % (Manual) 1, Myelocytes % 2 H, Diff Path Review May foll, Platelet Estimate ADEQUATE, RBC Morphology N CHROM, Anisocytosis 1+, Sodium 142, Potassium 4.4, Chloride 113 H, Carbon Dioxide 22.0, Anion Gap 7, BUN 9, C reatinine 0.52 L, Estim Creat Clear Calc 67.72, Est GFR (MDRD) Af Amer 149, Est GFR (MDRD) Non-Af 123, BUN/Creatinine Ratio 17.4, Glucose 103, Calcium 8.5 Radiography Diagnostic Testing: Radiology Impression Brain MRI 03/21/24 11:31 IMPRESSION: No evidence of metastatic disease or other acute intracranial pathology. The finding on prior CTs artifactual secondary to volume averaging of the sylvian fissure. Electronically Signed: Dustin Agosto, at 14:08 EDT , D/C Instructions Discharge Diet: No restrictions Weight Bearing Status: Full weight bearing Meaningful Use Info Meaningful Use Meaningful Use Diagnoses (Choose all that apply): None applicable Ischemic Stroke Statin Dosing Therapy Reference: STATIN DOSE THERAPY REFERENCE: * Patients > 75 years receive moderate or high dose statin therapy. * Patients 75 years or YOUNGER should receive HIGH intensity statin dose unless contraindicated. You will be required to document reason for non-treatment if statin daily dose does not meet guidelines. HIGH DOSE STATIN THERAPY DAILY Atorvastatin > than or = to 40 mg Rosuvastatin > than or = to 20 mg Amlodipine + Atorvastatin > than or = to 2.5/40 mg Ezetimibe + Simvastatin 10/80 mg Simvastatin 80mg Discharge Plan Admission Admit Date/Time: 03/20/24 22:33 Primary Reason for Your Visit: vertigo Attending Provider: Jamin Ansari Primary Care Provider: Jamin Foss Consulting Providers: Nolan Eddy; Robbie Andrew Discharge Orders/Prescriptions Prescriptions: Continued levothyroxine 75 mcg tablet 125 mcg PO DAILY 90 Days Patient Comments: calcium citrate 200 mg (950 mg) tablet 500 mg PO DAILY ondansetron HCl 4 mg tablet 4 mg PO DAILY PRN (Reason: nause) Patient Comments: TAKE 2 TABLETS BY MOUTH EVERY 8 HOURS NEEDED. FOR NAUSEA pyridoxine (vitamin B6) 25 mg tablet 25 mg PO DAILY potassium chloride 40 mEq/15 mL liquid 20 meq PO TID cholecalciferol (vitamin D3) [Vitamin D3] 50 mcg (2,000 unit) Capsule 50 mcg PO DAILY Rx Instructions: ON FRIDAY loperamide [Imodium A-D] 2 mg Capsule 2 mg PO Q4H PRN (Reason: Diarrhea) Eliquis 5 mg tablet 2.5 mg PO BID Referrals / Follow Up: Jamin Foss DO [Primary Care Provider] - 03/31/24 10:30 am Alex Moody DO [Med Staff - Active Staff] - See Referral Note (as directed) Disposition Disposition (needs filled in before D/C Order can be placed): Home, Self Care Charges/Coding Visit Charges Inpatient E&M: 79608 Disch Hosp >30min
--- NOTE | 2024-03-22 14:14 | CASEMGMT ---
Patient has order for discharge. RN CM in to discuss needs at discharge, at bedside. Patient and deny needs or help at discharge. Patient and had no further questions or concerns.
--- NOTE | 2024-03-22 14:28 | PHA.DC.MR.R ---
Pharmacy [facility] Med Reconciliation Pharmacy Service has performed discharge medication reconciliation for this patient. The patient's discharge medication list was reviewed for discrepancies and discrepancies were resolved. Medications at Discharge Home Medications levothyroxine 75 mcg tablet 125 mcg PO DAILY 90 days 11/06/17 calcium citrate 200 mg (950 mg) tablet 500 mg PO DAILY 04/05/18 cholecalciferol (vitamin D3) 50 mcg (2,000 unit) capsule (Vitamin D3) 50 mcg PO DAILY 03/12/21 loperamide 2 mg capsule (Imodium A-D) 2 mg PO Q4H PRN Diarrhea 04/23/21 apixaban 5 mg tablet (Eliquis) 2.5 mg PO BID 06/28/21 ondansetron HCl 4 mg tablet 4 mg PO DAILY PRN nause 06/28/21 potassium chloride 40 mEq/15 mL oral liquid 20 meq PO TID 03/07/23 pyridoxine (vitamin B6) 25 mg tablet 25 mg PO DAILY 03/07/23
[2024-03-22 14:50] VITALS: BP 146/74; PULSE 84; RESP 12; TEMP 36.6; O2SAT 97
[2024-03-23 10:20] LABS: Pathologist Review Reviewed
[2024-03-23 10:22] LABS: Pathologist Review Reviewed
[2024-03-23 13:11] LABS: Pathologist Review Reviewed
== END 2024-03-22 14:04 | disposition home or self-care (01) ==
LOC: ED 22:27 → PCU 23:21
PROVIDERS: Family Medicine; Admitting Provider Internal Medicine; Emergency Provider Emergency Medicine; PCP Family Medicine; Visit Provider Internal Medicine
DX: R42 Dizziness and giddiness (principal); C79.51 Secondary malignant neoplasm of bone; C50.911 Malignant neoplasm of unspecified site of right female breast; Z95.828 Presence of other vascular implants and grafts; R11.2 Nausea with vomiting, unspecified; I10 Essential (primary) hypertension; D69.6 Thrombocytopenia, unspecified; E78.2 Mixed hyperlipidemia; Z79.01 Long term (current) use of anticoagulants; R06.02 Shortness of breath; D69.59 Other secondary thrombocytopenia; E03.9 Hypothyroidism, unspecified; Z79.899 Other long term (current) drug therapy; Z92.21 Personal history of antineoplastic chemotherapy; Z86.718 Personal history of other venous thrombosis and embolism; Z79.890 Hormone replacement therapy; H55.09 Other forms of nystagmus; G93.89 Other specified disorders of brain; T45.1X5A Adverse effect of antineoplastic and immunosuppressive drugs, initial encounter
CPT/HCPCS: 36415; 70470; 70553; 71045; 80048; 80053; 81001; 83735; 84100; 84443; 85025; 94668; 96361; 96374; 97116; 97162; 97165; 97802; 99221; 99285; A9575; J7030; Q9967; A4216; G0378; J2405

== ENCOUNTER → 2024-06-23 | Outpatient (CLI) | payer MEDICARE, OTHER, SELFPAY | END | disposition home or self-care (01) | LOC: LABSPEC 15:05 | PROVIDERS: PCP Family Medicine; Referring Provider Nurse Practitioner Family; Visit Provider Nurse Practitioner Family | DX: N39.0 Urinary tract infection, site not specified (principal) | CPT/HCPCS: 87077; 87086; 87088; 87186 ==